=== PATIENT | male | born 2005 | race Caucasian/White ===

== ENCOUNTER 2024-09-08 21:36 | Emergency (ER) | payer OTHER, SELFPAY ==
--- NOTE | 2024-09-08 21:46 | PC.NURSE ---
patient did not want to stay once got into triage. asking when methadone would be ordered. this RN informed them that dose needs to be verified. patient and girlfriend asking if this RN would be ordering methadone and informed them a dr has to order dose. patient decided to leave and stated he will be going to [facility] for dosing.
--- OUTSIDE RECORDS SUMMARY | 2024-09-08 21:57 | XMS_ITS | Clinical Summary ---
Author Organization [facility] Address [address] [place], [place] [id number] Care Team Providers Care Cray Fishing Hand Name Role Phone Unavailable Primary Care Provider Unavailabl e Medications ondansetron (ZOFRAN-ODT) 4 MG disintegrating tablet 4 MG PO Q8H PRN nausea/v omiting 6 tablet 0 01/15/2019 Active ondansetron (ZOFRAN-ODT) 4 MG disintegrating tablet 4 MG PO Q8H 5 tablet 0 01/14/2019 Active Social History Tobacco Use Types Packs/Day Years Used Date Smoking Tobacco: Never Assessed Sex and Gender Information Value Date Recorded Sex Assigned at Not on file Legal Sex Male 10:58 PM EST Gender Identity Not on file Sexual Orientation Not on file Last Filed Vital Signs Vital Sign Reading Time Taken Comments Blood Pressure - - Pulse - - Temperature - - Respiratory Rate - - Oxygen Saturation - - Inhaled Oxygen Concentration - - Weight 88.7 kg (195 lb 8.8 oz) 01/15/2019 7:25 A M EDT Height 172.7 cm (5' 8 ) 01/15/2019 7:25 AM EDT Body Mass Index 29.73 01/15/2019 7:25 AM EDT Plan of Treatment Not on file
--- OUTSIDE RECORDS SUMMARY | 2024-09-08 21:57 | XMS_ITS | Clinical Summary ---
Author Organization [facility] Address [address] [place] [address] Phone Care Team Providers Care Waiter/Waitress Captain Name Role Phone Unavailable Primary Care Provider Unavailabl e Allergies No known active allergies Medications NIFEdipine XL 60 MG 24 hr tablet Take 60 mg by mouth every morning. 1 12/27/2019 Active NIFEdipine CC 90 MG 24 hr tablet Take 90 mg by mouth every evening. 1 12/27/2019 Active Sertraline HCl (ZOLOFT PO) Take by mouth. Active HYDROXYZINE HCL PO Take by mouth. Active Active Problems Problem Noted Date Diagnosed Date Prolonged Q-T interval on ECG 12/30/2020 Overview (12/30/2020): QTc 40 in the past per Hospital Admit Note 12/29/2020. Repeating EKG. COVID-19 virus infection 11/02/2020 Overview (11/02/2020): 05/06/2021 Essential hypertension 01/29/2020 Anxiety and depression 01/29/2020 Cannabis hyperemesis syndrom e concurrent with and due to cannabis abuse 01/27/2020 Overview (01/27/2020): 5 admissions for Above 4 at [facility] [place] 03/08/19, 11/09/19, 11/17/19, 12/18/19 [place] [facility] [place]19 Allergic rhinitis due to pollen 01/27/2020 Overview (01/27/2020): 11/05/17 Prick test + for Grass mix Resolved Problems Problem Noted Date Diagnosed Date Resolved Date Encounter for routine child health examination without abnormal findings 01/29/2020 Asthma 11/05/2017 01/29/2020 Overview (01/27/2020): spiromety normal infrequent Pro air use Immunizations Immunization Administration Dates Next Due DTaP 07/03/2007, 5,02/01/2004,01/31,2003,2003,2003 ,2003 H1N1 03/28/2009 HPV Vaccine 9 Valent 01/29/2020,10/25/2017 Hep A, ped/adol 01/29/2020,10/25/2017 Hep B 03/24/2004,2003,2003 Hep B, ped/adol 08/27/2008,2003,2003 HiB 06/23/2004, 4,02/01/2004,10/27,2003,2003,2003 IPV 08/27/2008, 4,2003,10/27,2003,2003 Influenza, injectable, quadr ivalent, preservative free 01/29/2020,02/09/2011,01/11/2010,03/28 MMR 09/03/2008,07/03/2007,06/23/2004 Meningococcal Conj (Menactra) MCV4P 01/29/2020,1 07/03/2014 Pneumococcal Conjugate 02/01/2004,2003, Pneumococcal, Unspecified 09/26/2004,,2003,08/24 Tdap 05/02/2015 Varicella 09/03/2008,07/03/2007,06/23/2004 Family History Medical History Relation Name Comments No Known Problems Father Zane No Known Problems Mother Dena Relation Name Status Comments Father Zane Alive Mother Dena Alive Social History Tobacco Use Types Packs/Day Years Used Date Smoking Tobacco: Never Assessed Hunger/Food Answer Date Recorded In the last 12 months, did y ou or your family ever eat less than you felt you should because there wasn't enough money for food? No 01/29/2020 Stable Housing Answer Date Recorded Are you worried that in the next 2 months you may not have stable housing? No 01/29/2020 Transportation Concerns Answer Date Rec orded In the last 12 months, have you or your family ever had to go without healthcare because you didn't have a way to get there? No 01/29/2020 Hazards in Home Answer Date Recorded Think about the place you li ve. Do you have problems with any of the following? Pests (mice or roaches), mold, no/not working smoke detectors, water leaks, no window guards. Yes 2019 Financing Utilities Answer Date Recorde d In the last 12 months, has t he electric, gas, oil, or water company threatened to shut off your services in your home? No 01/29/2020 Safety at Home Answer Date Recorded Are you or your family worried about feeling saf e in your home? No 01/29/2020 Outside Support Answer Date Recorded Do you feel that you need mo re support from other people or programs to help you care for yourself or your family? No 01/29/2020 Understanding Health Concerns Answer Da te Recorded Do you need help understandi ng your or your child's healthcare needs (diagnosis, medications, plan, etc.)? No 01/29/2020 Financing Health Concerns Answer Date R ecorded In the last 12 months, was t here a time when your child needed to see a doctor or get medications or supplies but could not because of cost? No 01/29/2020 Missing School or Work Answer Date Robin rded Did you or your child miss s chool or work because of a health problem that could have been avoided? Yes 01/29/2020 Sex and Gender Information Value Date Recorded Sex Assigned at Male 01/29/2020 9:27 AM EDT Legal Sex Male 6:28 PM EDT Gender Identity Male 01/29/2020 9:27 AM EDT Sexual Orientation Straight 01/29/2020 9: 27 AM EDT Last Filed Vital Signs Vital Sign Reading Time Taken Comments Blood Pressure 120/78 01/29/2020 8:47 AM EDT Pulse - - Temperature - - Respiratory Rate - - Oxygen Saturation - - Inhaled Oxygen Concentration - - Weight 79.8 kg (176 lb) 01/29/2020 8:47 AM EDT Height 168.9 cm (5' 6.5 ) 01/29/2020 8:47 AM EDT Body Mass Index 27.98 01/29/2020 8:47 AM EDT Plan of Treatment Health Maintenance Due Date Last Done Comments Men B Vaccine (1 of 2 - Standard) 2019 Influenza Vaccines (#1) 2023 03/14/20, 01/29/2020, 03/04/2015, Additional history exists COVID-19 Vaccine (1 - 2023-2 5 season) 2024 DTaP,Tdap,and Td Vaccines (8 - Td or Tdap) 05/02/2025 05/02/2015, 10/16/2013, 07/03/2007, Additional history exists HIB Vaccines Completed 06/23/2004, 01/12, 02/01/2004, Additional history exists Pneumococcal Vaccine Completed 09/26/2004, 02/01/2004, 02/01/2004, Additional history exists Hepatitis B Vaccines Completed 08/27/2008, 03/24/2004, 2003, Additional history exists IPV Vaccines Completed 08/27/2008, 03/13, 2003, Additional history exists MMR Vaccines Completed 09/03/2008, 06/14, 06/23/2004 Varicella Vaccines Completed 09/03/2008, 0 07/03/2007, 06/23/2004 HPV Vaccines Completed 01/29/2020, 06/2018, 10/25/2017 Hepatitis A Vaccines Completed 01/29/2020, 02/11/2019, 10/25/2017 Meningococcal Vaccine Completed 01/29/2020, 015 Insurance [facility] NON [facility] P[facility] MEDICAID [facility] [place] [place] Address: [address] [address] [place] [address]
== END 2024-09-08 21:57 | disposition left against medical advice (07) ==
PROVIDERS: Emergency Provider Emergency Medicine
DX: Z53.21 Procedure and treatment not carried out due to patient leaving prior to being seen by health care provider (principal)

== ENCOUNTER 2024-10-02 17:33 | Inpatient (IN) | payer OTHER, SELFPAY ==
[2024-10-02 17:34] VITALS: BP 146/99; PULSE 116; RESP 18; TEMP 36.6; BMI 28.9
--- NOTE | 2024-10-02 17:47 | ECG_ITS ---
Test Reason : SYNCOPE Blood Pressure : */* mmHG Vent. Rate : 64 BPM Atrial Rate : 64 BPM P-R Int : 142 ms QRS Dur : 94 ms QT Int : 556 ms P-R-T Axes : 64 28 20 degrees QTcB Int : 573 ms Normal sinus rhythm Right atrial enlargement ST & T wave abnormality, consider inferior ischemia ST & T wave abnormality, consider anterolateral ischemia Prolonged QT Abnormal ECG No previous ECGs available Referred By: Aidan Wallace Electronically Signed By: Yeison Gaytan
--- NOTE | 2024-10-02 17:47 | ED.GENADULT ---
HPI - General Adult General Chief complaint: General Medical Stated complaint: Vomiting Time Seen by Provider: 10/02/24 18:13 Source: patient Limitations: no limitations History of Present Illness ED Provider: Sissy Juan PA-C HPI narrative: 19-year-old male with a known cannabinoid induced hyperemesis, opiate use disorder on methadone, presents with nausea vomiting. Patient admits to using marijuana a week ago, he has had nausea vomiting since, he had a syncopal episode in the shower today. Denies recent cough or cold symptoms, fever, abdominal pain, diarrhea or sick contacts with similar symptoms. Related Data Home Medications ?Medication ?Instructions ?Recorded ?Confirmed methadone 10 mg/mL oral 110 mg PO DAILY 10/02/24 concentrate (Methadone Intensol) Allergies Allergy/AdvReac Type Severity Reaction Status Date / Time haloperidol [From Haldol] Allergy Unknown Verified 10/02/24 17:39 Review of Systems Review of Systems: Yes all other systems are reviewed and are negative Constitutional: Constitutional: Denies fatigue and Denies fever(s) Cardiovascular: Cardiovascular: Denies chest pain and Denies dyspnea Respiratory: Respiratory: Denies cough and Denies dyspnea Gastrointestinal: Gastrointestinal: Denies abdominal pain, Denies diarrhea, Reports nausea and Reports vomiting Endocrine: Endocrine: Denies fatigue PMFSH Past Medical History Attestation statement: The following information was validated with the patient. Medical History (Updated 10/02/24 @ 22:32 by Loree Mcgrath PA-C) Prolonged QT interval Opioid use disorder Cannabinoid hyperemesis syndrome Physical Exam ED Vital Signs: Vital Signs - 24 hr 10/02/24 20:12 Pulse Rate 72 Respiratory Rate 14 Blood Pressure 124/90 H Pulse Oximetry 97 Oxygen Delivery Method Room Air BMI result Body Mass Index 28.9 Const Other: Alert Orientation/consciousness: patient oriented x3 Eyes Other: pupils dilated Resp Effort & Inspection: normal respiratory effort Cardio Other: normal peripheral perfusion Skin Other: warm dry no rash Neuro General: patient oriented x3, gait normal, no focal motor deficits and CN's II-XI intact bilaterally Psych Other: cooperative Course Course Course Narrative: RME, this is a rapid medical exam performed by Ephraim Wallace please refer to primary provider for complete H&P- 19 year old male presents for evaluation of vomiting for the last week. He has a history of cannabis hyperemesis. Plan for labs, UA, and tox screen Medications Administered Discontinued Medications Generic Name Dose Route Start Last Admin Trade Name Wesley PRN Reason Stop Dose Admin Diazepam 5 mg 10/02/24 18:46 10/02/24 18:51 Diazepam 10 Mg/2 Ml Cartridge IVPUSH 10/02/24 18:47 5 mg STAT STA Administration Diphenhydramine HCl 50 mg 10/02/24 18:25 10/02/24 18:47 Diphenhydramine Hcl 50 Mg/Ml Vial IVPUSH 10/02/24 18:26 Not Given ONCE ONE Droperidol 1.25 mg 10/02/24 18:16 10/02/24 18:47 Droperidol 5 Mg/2 Ml Vial IVPUSH 10/02/24 18:17 Not Given ONCE ONE Sodium Chloride 1,000 mls @ 999 mls/hr 10/02/24 18:30 10/02/24 22:33 Ns IV 10/02/24 19:30 Infused .Q1H1M PRABHJOT Infusion Magnesium Sulfate 2 gm in 50 mls @ 25 mls/hr 10/02/24 18:40 10/02/24 22:33 Magnesium Sulfate/H2o IV 10/02/24 20:39 Infused ONCE ONE Infusion Potassium Chloride 10 meq in 100 mls @ 100 mls/hr 10/02/24 19:30 10/02/24 22:32 Potassium Chloride/H20 IV 10/02/24 23:29 100 mls/hr Q1H PRABHJOT Infusion Potassium Chloride 60 meq 10/02/24 19:30 10/02/24 19:36 Potassium Chloride Packet 20 Meq Packet PO 10/02/24 19:31 60 meq ONCE ONE Administration Potassium Chloride 40 meq 10/02/24 21:10 10/02/24 21:39 Potassium Chloride Er 20 Meq Tab.Er.Prt PO 10/02/24 21:11 40 meq ONCE ONE Administration Scopolamine 1.5 mg 10/02/24 20:09 10/02/24 20:32 Scopolamine 1.5 Mg Patch.Td.3 EAR-BEHIND 10/02/24 20:10 1.5 mg ONCE ONE Administration Medical Decision Making Medical Decision Making MDM Narrative: 19-year-old male with a known cannabinoid induced hyperemesis, opiate use disorder on methadone, presents with nausea vomiting. Patient admits to using marijuana a week ago, he has had nausea vomiting since, he had a syncopal episode in the shower today. Denies recent cough or cold symptoms, fever, abdominal pain, diarrhea or sick contacts with similar symptoms. problem: Marijuana abuse, opiate use disorder History: Per patient I have considered the following differential diagnoses: Cannabinoid induced hyperemesis, viral gastro, acute intra-abdominal pathology, electrolyte abnormality, dehydration, ACS Plan: EKG performed, the patient has ST segment depressions with T-wave inversions that are widespread, the patient states it has been brought to his attention in the past that his EKGs are concerning, we are obtaining records from [facility]. The patient has no complaint of chest pain, he has no risk factors for coronary artery disease, I will add on a troponin. His QT is also prolonged at 573, unclear if this is baseline or new, he is on methadone which could account for it. I was going to medicate with droperidol, that medication has been discontinued. We will be giving Valium and IV fluid. We will be checking a magnesium level and giving 2 gm of magnesium to be run over 20 minutes. He has no complaint of abdominal pain, with an unremarkable exam, he does not require imaging at this time. Likely not viral gastroenteritis given patient has no sick contacts with same symptoms, and he has known cannabinoid induced hyperemesis. Patient's potassium is critical at 2.0, we will be giving oral potassium and IV. In addition, the patient is metabolic alkalosis, bicarb is 46. The patient will require admission. I have independently reviewed the following tests: Labs: significant leukocytosis of 17.6, with left shift, not anemic, potassium critically low at 2.0, bicarb 46, magnesium elevated. EKG: Normal sinus rhythm, rate of 64, diffuse ST depressions and T-wave inversions anterolateral leads and inferiorly, QTC 573, no ectopy Lab Data 10/02/24 18:57 10/02/24 20:01 Labs: Lab Results 10/02/24 10/02/24 Range/Units 18:57 20:01 WBC 17.6 H (4.8-10.8) X10*3/uL RBC 5.67 (4.60-5.80) X10*6/uL Hgb 16.9 (14.0-18.0) g/dl Hct 46.7 (42.0-52.0) % MCV 82.4 (80.0-98.0) fL MCH 29.8 (27.0-33.0) pg MCHC 36.2 H (31.0-36.0) g/dl RDW 12.1 (11.0-16.0) % Plt Count 393 (160-400) X10*3/uL MPV 10.9 (9.4-12.4) fL Immature Gran % (Auto) 0.5 H (0.0-0.4) % Neut % (Auto) 75.3 H (45-73) % Lymph % (Auto) 15.9 L (20-40) % [place] % (Auto) 7.1 (2-11) % Eos % (Auto) 1.0 (0-4) % Baso % (Auto) 0.2 (0-2) % Lymph # (Auto) 2.8 (1.2-4.9) X10*3/uL [place] # (Auto) 1.3 H (0.1-1.2) X10*3/uL Eos # (Auto) 0.2 (0.0-0.4) X10*3/uL Baso # (Auto) 0.0 (0.0-0.2) X10*3/uL Abs Immat Gran (auto) 0.08 H (0.00-0.03) X10*3/uL Absolute Neuts (auto) 13.3 H (2.0-8.3) x10*3/uL Absolute Nucleated RBC 0.000 (0.0-0.012) X10*3/uL Nucleated RBC % (auto) 0.0 (0.0-0.2) /100WBC Sodium 133 L 135 (135-145) mmol/L Potassium 2.0 L* 2.3 L* (3.3-5.1) mmol/L Chloride 72 L 71 L (96-108) mmol/L Carbon Dioxide 46 H* 47 H* (22-29) mmol/L Anion Gap 17 19 (12-20) BUN 35 H 33 H (9-16) mg/dL Creatinine 1.17 1.22 (0.5-1.4) mg/dL Estim Creat Clear Calc 99.9 95.8 Estimated GFR > 60 > 60 Random Glucose 135 H 96 (60-115) mg/dL Calcium 9.5 9.6 (8.4-10.2) mg/dL Magnesium 4.3 H* 3.9 H* (1.6-2.6) mg/dL Total Bilirubin 0.9 (0.0-1.0) mg/dL AST 33 (5-37) U/L ALT 27 (0-40) U/L Alkaline Phosphatase 91 (39-117) U/L Troponin I High Sens 9.7 (<3.5-35.0) ng/L Total Protein 7.7 (6.5-8.0) g/dL Albumin 4.5 (3.5-5.0) g/dL Lipase 21 (8-78) U/L Ethyl Alcohol < 10 mg/dL Influenza Type A (PCR) NEGATIVE (Negative) Influenza Type B (PCR) NEGATIVE (Negative) RSV RNA Qual (PCR) NEGATIVE (Negative) SARS-CoV-2 RNA (RT-PCR) NEGATIVE (Negative) Discharge Plan Discharge Clinical Impression: Alkalosis, metabolic, Acute hypokalemia, Cannabinoid hyperemesis syndrome Patient Disposition: Left Against Medical Advice Discharge Date/Time: 10/02/24 23:02
[2024-10-02] MEDS: 0.9 % Sodium Chloride 1,000 ML 999 ML IV (18:38)
[2024-10-02] MEDS: Magnesium Sulfate/H2O 2 GM/50 ML PIGGYBACK IV (18:51)
[2024-10-02] MEDS: diazePAM 10 MG/2 ML CARTRIDGE 5 MG IVPUSH (18:51)
[2024-10-02 19:03] LABS: MANUAL DIFF FLAG NO
[2024-10-02 19:06] LABS: Basophils Percent Auto 0.2 % (0-2); Eosinophils Absolute Auto 0.2 X10*3/uL (0.0-0.4); Hematocrit 46.7 % (42.0-52.0); Hemoglobin 16.9 g/dl (14.0-18.0); Imm Gran Abs Auto 0.08 X10*3/uL (0.00-0.03); Imm Gran Pct Auto 0.5 % (0.0-0.4); Lymphocytes Absolute Auto 2.8 X10*3/uL (1.2-4.9); Lymphocytes Percent Auto 15.9 % (20-40); Mean Corpuscular HGB Conc 36.2 g/dl (31.0-36.0); Mean Corpuscular Hemoglobin 29.8 pg (27.0-33.0); Mean Corpuscular Volume 82.4 fL (80.0-98.0); Mean Platelet Volume 10.9 fL (9.4-12.4); Monocytes Absolute Auto 1.3 X10*3/uL (0.1-1.2); Monocytes Percent Auto 7.1 % (2-11); Neutrophils Absolute Auto 13.3 x10*3/uL (2.0-8.3); Neutrophils Percent Auto 75.3 % (45-73); Platelet Count 393 X10*3/uL (160-400); Red Blood Count 5.67 X10*6/uL (4.60-5.80); Red Cell Distribution Width 12.1 % (11.0-16.0); White Blood Count 17.6 X10*3/uL (4.8-10.8)
[2024-10-02 19:19] VITALS: BP 141/87; PULSE 85; RESP 16; O2SAT 99
[2024-10-02 19:31] LABS: Troponin-I High Sensitivity 9.7 ng/L (<3.5-35.0)
[2024-10-02 19:32] LABS: Magnesium 4.3 mg/dL (1.6-2.6)
[2024-10-02 19:33] LABS: Alanine Aminotransferase 27 U/L (0-40); Albumin Level 4.5 g/dL (3.5-5.0); Alkaline Phosphatase 91 U/L (39-117); Anion Gap 17 (12-20); Aspartate Amino Transferase 33 U/L (5-37); Bilirubin Total 0.9 mg/dL (0.0-1.0); Blood Urea Nitrogen 35 mg/dL (9-16); Calcium 9.5 mg/dL (8.4-10.2); Carbon Dioxide 46 mmol/L (22-29); Chloride 72 mmol/L (96-108); Creatinine Clr Calc Pharmacy 99.9; Estimated Glomerular Filt Rate > 60; Ethanol < 10 mg/dL; Glucose Random 135 mg/dL (60-115); Lipase 21 U/L (8-78); Sodium 133 mmol/L (135-145); Total Protein 7.7 g/dL (6.5-8.0)
[2024-10-02] MEDS: Potassium Chloride Packet 20 MEQ PACKET 60 MEQ PO (19:36)
[2024-10-02 19:42] LABS: Influenza A PCR NEGATIVE (Negative); Influenza B PCR NEGATIVE (Negative); Resp Syncy Virus RNA Qual PCR NEGATIVE (Negative); SARS COV2 PCR INHOUSE NEGATIVE (Negative)
[2024-10-02 20:12] VITALS: BP 124/90; PULSE 72; RESP 14; O2SAT 97
[2024-10-02] MEDS: Scopolamine 1.5 MG PATCH.TD.3 EAR-BEHIND (20:32)
[2024-10-02] MEDS: Potassium Chloride/H20 10 MEQ/100 ML PIGGYBACK 100 MEQ IV ×3 (20:32→22:25)
[2024-10-02 20:35] LABS: Anion Gap 19 (12-20); Blood Urea Nitrogen 33 mg/dL (9-16); Calcium 9.6 mg/dL (8.4-10.2); Carbon Dioxide 47 mmol/L (22-29); Chloride 71 mmol/L (96-108); Creatinine Clr Calc Pharmacy 95.8; Estimated Glomerular Filt Rate > 60; Glucose Random 96 mg/dL (60-115); Magnesium 3.9 mg/dL (1.6-2.6); Potassium 2.3 mmol/L (3.3-5.1); Sodium 135 mmol/L (135-145)
[2024-10-02] MEDS: Potassium Chloride ER 20 MEQ TAB.ER.PRT 40 MEQ PO (21:39)
--- NOTE | 2024-10-02 21:50 | PHA.MEDREC ---
Pharmacy Consult ? Medication Reconciliation Pharmacy has completed the medication reconciliation. Patient asked to leave AMA. Only listed methadone 110mg as a home med from [facility] in [place]
--- NOTE | 2024-10-02 22:26 | PC.NURSE ---
pt self removed tele monitor, he is requesting to leave AMA, dr [email or web address] notified via .
--- NOTE | 2024-10-02 22:27 | PM.IMHP ---
History of Present Illness Date of Service: 10/02/24 Attending physician on admission: Kev Kaye Chief Complaint: nausea, vomiting, syncopal episode Patient is a 19-year-old male with a past medical history significant for cannabinoid induced hyperemesis and opioid use disorder on methadone, who presented to the ED due to persistent nausea and vomiting for the past week after smoking marijuana. He denies any recent cough, URI symptoms, fever, abdominal pain, diarrhea, hematemesis or sick contacts. He also reports a syncopal episode but is unable to elaborate about this as he is very upset about admission and is threatening to leave AMA. Review of Systems Review of Systems: limited as pt does not respond to many questions because he is upset Constitutional: Constitutional: Denies fever(s) Eyes: Eyes: Denies change in vision ENT: Denies nasal congestion and Denies nasal discharge Cardiovascular: Cardiovascular: Denies chest pain and Denies dyspnea Respiratory: Respiratory: Denies cough, Denies dyspnea and Denies wheezing Gastrointestinal: Gastrointestinal: Denies coffee ground emesis, Reports nausea, Reports vomiting and Denies hematemesis Integumentary/Breasts: Skin/Breast: Denies rash Neurologic: Denies confusion Psychiatric: Psychiatric: Denies confusion Allergic/Immunologic: Allergic/Immunologic: Denies wheezing [facility] Medical History (Updated 10/02/24 @ 22:32 by Loree Mcgrath PA-C) Prolonged QT interval Opioid use disorder Cannabinoid hyperemesis syndrome Functional capacity: independent ambulation Social History Advance Directives: No Advance Directives Information Provided: No Meds Allergies Allergy/AdvReac Type Severity Reaction Status Date / Time haloperidol [From Haldol] Allergy Unknown Verified 10/02/24 17:39 Active Medications: Current Medications Potassium Chloride (Potassium Chloride/H20) 10 meq in 100 mls @ 100 mls/hr IV Q1H PRABHJOT Stop: 10/02/24 23:29 Last Admin: 10/02/24 22:25 Dose: 100 mls/hr Home Medications ?Medication ?Instructions ?Recorded ?Confirmed ?Last Taken ?Type methadone 10 mg/mL oral 110 mg PO DAILY 10/02/24 Unknown History concentrate (Methadone Intensol) Physical Exam Vital Signs and Narrative: Vital Signs: Last Vital Signs Temp 98 F 10/02/24 17:34 Pulse 72 10/02/24 20:12 Resp 14 10/02/24 20:12 BP 124/90 H 10/02/24 20:12 Pulse Ox 97 10/02/24 20:12 O2 Del Method Room Air 10/02/24 20:12 BMI result Body Mass Index 28.9 General: AOx3, no acute distress Resp: CTA bilaterally CVS: S1, S2, RRR GI: +BS, NT, no distention Skin: Warm, dry Neuro: Cranial nerves II-XII grossly intact bilaterally. Motor grossly intact bilaterally Extremities: No LE edema Psych: Upset, angry Const: General: No confusion Orientation/consciousness: No confusion Neuro: General: No confusion Results Labs 10/02/24 18:57 10/02/24 20:01 Labs: Laboratory Results - last 24 hr 10/02/24 10/02/24 18:57 20:01 MCV 82.4 MCH 29.8 MCHC 36.2 H RDW 12.1 Plt Count 393 MPV 10.9 Immature Gran % (Auto) 0.5 H Neut % (Auto) 75.3 H Lymph % (Auto) 15.9 L [place] % (Auto) 7.1 Eos % (Auto) 1.0 Baso % (Auto) 0.2 Lymph # (Auto) 2.8 [place] # (Auto) 1.3 H Eos # (Auto) 0.2 Baso # (Auto) 0.0 Abs Immat Gran (auto) 0.08 H Absolute Neuts (auto) 13.3 H Absolute Nucleated RBC 0.000 Nucleated RBC % (auto) 0.0 Anion Gap 17 19 Estim Creat Clear Calc 99.9 95.8 Estimated GFR > 60 > 60 Random Glucose 135 H 96 Calcium 9.5 9.6 Magnesium 4.3 H* 3.9 H* Total Bilirubin 0.9 AST 33 ALT 27 Alkaline Phosphatase 91 Total Protein 7.7 Albumin 4.5 Lipase 21 Ethyl Alcohol < 10 Influenza Type A (PCR) NEGATIVE Influenza Type B (PCR) NEGATIVE RSV RNA Qual (PCR) NEGATIVE SARS-CoV-2 RNA (RT-PCR) NEGATIVE Assessment and Plan (1) Cannabinoid hyperemesis syndrome: Status: Acute (2) Alkalosis, metabolic: Status: Acute (3) Acute hypokalemia: Status: Acute (4) Hypochloremic alkalosis: Status: Acute (5) Prolonged QT interval: Status: Acute Plan Patient is a 19-year-old male with a past medical history significant for cannabinoid induced hyperemesis and opioid use disorder on methadone, who presented to the ED due to persistent nausea and vomiting for the past week after smoking marijuana. Cannabinoid hyperemesis syndrome with hypokalemia, hypochloremia, and hypermagnesemia - patient with significant vomiting for the past week after marijuana use and history of cannabinoid hyperemesis syndrome - WBC 17.6, likely reactive - COVID/flu/RSV negative - EKG with prolonged QTC of 573 - labs with metabolic alkalosis, bicarb 47 - hypokalemic at 2.3, given 40 meq p.o. and 30 meq IV potassium - magnesium 3.9 - recheck BMP at 02:00 - scopolamine patch, droperidol and Benadryl as needed for nausea - monitor on tele - monitor BMP Prolonged QT - patient with history of prolonged QT, reviewed [facility] records, significantly elevated from baseline at 573 - patient is on methadone - repeat EKG after electrolyte repletion Opioid use disorder - patient is on methadone, we will need dose confirmed Full code VTE prophylaxis: Lovenox Patient with cannabinoid hyperemesis syndrome complicated by metabolic alkalosis, acute hypokalemia and prolonged QT, requiring admission for at least 2 midnight stay for electrolyte repletion and cardiac monitoring. Quality Stroke Does the patient have a stroke diagnosis?: No VTE Prior VTE?: Yes VTE Risk Level:: Medical - moderate - high VTE Device Contraindication: Treatment Not Indicated VTE Drug Contraindication: N/A - Med Ordered
--- NOTE | 2024-10-02 22:40 | P.DS_ITS ---
DS: Providers Provider Date of Service: 10/02/24 Date of admission: 10/02/24 21:10 Date of discharge: 10/02/24 Primary care physician: Rojas Physician DS: Diagnosis Discharge Diagnosis (1) Cannabinoid hyperemesis syndrome: Status: Acute (2) Alkalosis, metabolic: Status: Acute (3) Acute hypokalemia: Status: Acute (4) Hypochloremic alkalosis: Status: Acute (5) Prolonged QT interval: Status: Acute DS: Summary Hospital Course Hospital Course: admission H&P: Patient is a 19-year-old male with a past medical history significant for cannabinoid induced hyperemesis and opioid use disorder on methadone, who presented to the ED due to persistent nausea and vomiting for the past week after smoking marijuana. He denies any recent cough, URI symptoms, fever, abdominal pain, diarrhea, hematemesis or sick contacts. He also reports a syncopal episode but is unable to elaborate about this as he is very upset about admission and is threatening to leave AMA. Cannabinoid hyperemesis syndrome with hypokalemia, hypochloremia, and hypermagnesemia - patient with significant vomiting for the past week after marijuana use and history of cannabinoid hyperemesis syndrome - WBC 17.6, likely reactive - COVID/flu/RSV negative - EKG with prolonged QTC of 573 - labs with metabolic alkalosis, bicarb 47 - hypokalemic at 2.3, given 40 meq p.o. and 30 meq IV potassium - magnesium 3.9 - recheck BMP at 02:00 - scopolamine patch, droperidol and Benadryl as needed for nausea - monitor on tele - monitor BMP Prolonged QT - patient with history of prolonged QT, reviewed [facility] records, significantly elevated from baseline at 573 - patient is on methadone - repeat EKG after electrolyte repletion Opioid use disorder - patient is on methadone, we will need dose confirmed Pt left AMA shortly after being admitted. He received 40 mEq p.o. potassium as well as 30 mEq IV, 1 L IV fluids, Benadryl, droperidol and scopolamine patch for nausea. I discussed the risks of leaving AMA included cardiac event, which could be fatal. pt is aware of the risks and would still like to leave AMA. Status at Discharge Functional status at discharge: independent ambulation Overall status at discharge: patient is not back to baseline Time Attestation Total time managing care of this patient today: 30 mintues. Discharge Coordination Time (in mins): 30 mins Quality: Safe Use of Opioids Does Pt have an Active Cancer Diagnosis on the Problem List?: No Quality: Stroke Does the patient have a stroke diagnosis?: No Physical Exam Vital Signs: Vital Signs: Last Vital Signs Temp 98 F 10/02/24 17:34 Pulse 72 10/02/24 20:12 Resp 14 10/02/24 20:12 BP 124/90 H 10/02/24 20:12 Pulse Ox 97 10/02/24 20:12 O2 Del Method Room Air 10/02/24 20:12 BMI result Body Mass Index 28.9 General: AOx3, no acute distress Resp: CTA bilaterally CVS: S1, S2, RRR GI: +BS, NT, no distention Skin: Warm, dry Neuro: Cranial nerves II-XII grossly intact bilaterally. Motor grossly intact bilaterally Extremities: No LE edema Psych: Upset, angry DS: Data Data Completed and Pending Labs on day of discharge: Laboratory Results - last 24 hr 10/02/24 10/02/24 18:57 20:01 WBC 17.6 H RBC 5.67 Hgb 16.9 Hct 46.7 MCV 82.4 MCH 29.8 MCHC 36.2 H RDW 12.1 Plt Count 393 MPV 10.9 Immature Gran % (Auto) 0.5 H Neut % (Auto) 75.3 H Lymph % (Auto) 15.9 L [place] % (Auto) 7.1 Eos % (Auto) 1.0 Baso % (Auto) 0.2 Lymph # (Auto) 2.8 [place] # (Auto) 1.3 H Eos # (Auto) 0.2 Baso # (Auto) 0.0 Abs Immat Gran (auto) 0.08 H Absolute Neuts (auto) 13.3 H Absolute Nucleated RBC 0.000 Nucleated RBC % (auto) 0.0 Sodium 133 L 135 Potassium 2.0 L* 2.3 L* Chloride 72 L 71 L Carbon Dioxide 46 H* 47 H* Anion Gap 17 19 BUN 35 H 33 H Creatinine 1.17 1.22 Estim Creat Clear Calc 99.9 95.8 Estimated GFR > 60 > 60 Random Glucose 135 H 96 Calcium 9.5 9.6 Magnesium 4.3 H* 3.9 H* Total Bilirubin 0.9 AST 33 ALT 27 Alkaline Phosphatase 91 Troponin I High Sens 9.7 Total Protein 7.7 Albumin 4.5 Lipase 21 Ethyl Alcohol < 10 Influenza Type A (PCR) NEGATIVE Influenza Type B (PCR) NEGATIVE RSV RNA Qual (PCR) NEGATIVE SARS-CoV-2 RNA (RT-PCR) NEGATIVE Discharge Plan Discharge Patient Disposition: Left Against Medical Advice Discharge Diagnosis: Cannabis Hyperemesis syndrome Referrals: Physician,None [Primary Care Provider] - 1 Week Discharge Medications: No Action methadone [Methadone Intensol] 10 mg/mL Concentrate 110 mg PO DAILY Discharge Orders: Discharge Order (Routine); Ordered 10/02/24 Ordered By: Kev Kaye Diet: Advance to usual diet Activity on Discharge: As tolerated Print Language: Guamanian Care Plan Goals: Establish care with PCP Health Concerns: Cannabis use disorder Prolonged QTC Hypokalemia Plan of Treatment: Left AMA Assessment: As above Discharge Date/Time: 10/02/24 22:59
[2024-10-02 22:56] VITALS: BP 124/90; PULSE 81; RESP 20; O2SAT 97
== END 2024-10-02 22:59 | disposition left against medical advice (07) | DRG 249 ==
LOC: HO.ED 21:04 → HO.EDOVER 21:15
PROVIDERS: Physician Assistant; Physician Assistant Medical; Admitting Provider Student in an Organized Health Care Education/Training Program; Emergency Provider Emergency Medicine; Visit Provider Student in an Organized Health Care Education/Training Program
DX: R11.2 Nausea with vomiting, unspecified (principal); E87.3 Alkalosis; E83.41 Hypermagnesemia; E87.8 Other disorders of electrolyte and fluid balance, not elsewhere classified; F12.90 Cannabis use, unspecified, uncomplicated; F11.20 Opioid dependence, uncomplicated; E87.6 Hypokalemia; R94.31 Abnormal electrocardiogram [ECG] [EKG]; Z20.822 Contact with and (suspected) exposure to COVID-19
CPT/HCPCS: 0241U; 36415; 80048; 80053; 80307; 83690; 83735; 84484; 85025; 93005; 99222; 99284; J1200; J1790; J3360; J3475; J3480

== ENCOUNTER → 2024-10-02 17:47 | Outpatient (BNV) | payer OTHER, SELFPAY | PROVIDERS: Admitting Provider Student in an Organized Health Care Education/Training Program; Emergency Provider Emergency Medicine; Visit Provider Internal Medicine Cardiovascular Disease | DX: I51.7 Cardiomegaly (principal) | CPT/HCPCS: 93010 ==

== ENCOUNTER → 2024-10-02 21:10 | Outpatient (BNV) | payer OTHER, SELFPAY | PROVIDERS: Admitting Provider Student in an Organized Health Care Education/Training Program; Emergency Provider Emergency Medicine; Visit Provider Physician Assistant | DX: R11.2 Nausea with vomiting, unspecified (principal); F12.90 Cannabis use, unspecified, uncomplicated; E87.3 Alkalosis; E87.6 Hypokalemia; R94.31 Abnormal electrocardiogram [ECG] [EKG] | CPT/HCPCS: 99223; 99499 ==

== ENCOUNTER 2024-10-20 05:27 | Emergency (ER) | payer OTHER, SELFPAY ==
[2024-10-20] VITALS (9 sets, daily range): BP systolic 119–169; BP diastolic 68–93; PULSE 69–95; RESP 10–24; TEMP 36.6–37.1; O2SAT 97–98; BMI 25.1
--- OUTSIDE RECORDS SUMMARY | 2024-10-20 05:54 | XMS_ITS | Clinical Summary ---
Author Organization [facility] Address [address] [place] [address] Phone Care Team Providers Care Asphalt Spreader Name Role Phone Kim Sorto MD Primary Care Provid er Allergies No known active allergies Medications albuterol HFA (PROVENTIL HFA;VENTOLIN HFA) 108 (90 Base) MCG/ACT inhaler Inhale 2 puffs every 4 (four) hours as needed for wheezing or shortness of breath 1 Inhaler 11 9 Active capsaicin (ZOSTRIX) 0.025 % cream Apply topically every 4 (four) hours as needed (nausea) 60 g 9 Active Dextrose-Sodium Chloride (DEXTROSE 5 % AND SODIUM CHLORIDE 0.9 %) 5-0.9 % infusion Infuse 100 mL/hr into a venous catheter continuously 250 mL 9 Active diphenhydrAMINE (BENADRYL) 50 MG/ML injection Infuse 1 mL (50 mg total) into a venous catheter every 6 (six) hours as needed for sleep (nausea) 10 mL 9 Active famotidine (PEPCID) 20-0.9 MG/50ML-% IVPB Infuse 50 mL (20 mg total) into a venous catheter every 12 (twelve) hours 3000 mL 9 Active LORazepam (ATIVAN) 2 MG/ML injection Infuse 0.5 mL (1 mg total) into a venous catheter every 6 (six) hours as needed (nausea) 1 mL 9 Active nicotine (NICODERM CQ) 14 MG/24HR Place 1 patch on the skin daily 9 Active Active Problems Problem Noted Date Diagnosed Date Hematemesis with nausea 01/20/2019 Assessment & Plan (01/20/2019 12:52 AM EDT): See cannabis hyperemesis section. Hypertension 01/19/2019 Assessment & Plan (01/20/2019 12:50 AM EDT): Olayinka was noted to have hypertension on the evening of 01/19 to 157/111. His BP remained elevated 155-165/105-117. He has had mildly elevated BP throughout hospitalization, but not to this extent. Differential included nicotine withdrawal (as refused nicotine patch on multiple occassions), renal issue (though BUN/CR have remained reassuring), other substance withdrawal (utox on admission was negative, but question ETOH or other untested substance as possibility). Case reviewed with [facility] ICU team. [place] he may need more intensive monitoring for possible withdrawal issues as well as possible nephrology evaluation, neither of which is available for this age group at [facility]. Placement was found at [facility] and patient will be transferred there. Nicotine dependence, other tobacco product, with withdrawal 01/18/2019 Assessment & Plan (01/19/2019 10:31 PM EDT): Pt smokes at least two juuls per day, per mother and patient. This is, on average, the equivalent of 40 cigarettes per day. Patient is likely experiencing nicotine withdrawal, symptoms of which include: ?Sleep disturbances ?Irritability and anger ?Anxiety ?Dysphoria or depressed mood ?Restlessness (per [facility] Management of smoking cessation in adolescents) Course: Nicotine patch had been ordered, however patient declined application until 01/18. It was placed twice on 01/18 but patient did not like how patch felt on his skin so he removed. Patch placed again x2-3 times on 01/19, patient again removed. Patient had agreed to allow re-placement of patch on evening of 01/19. Dehydration in pediatric patient 01/17/2019 Assessment & Plan (01/19/2019 10:32 PM EDT): See cannabis hyperemeis Cannabis hyperemesis syndrom e concurrent with and due to cannabis abuse 01/16/2019 Assessment & Plan (01/20/2019 12:52 AM EDT): This is a 13 year old male who has used marijuana daily for about a year now and presented with 4 days of intractable vomiting. His compulsion to shower frequently as well as his history of heavy marijuana use are consistent with cannabis hyperemesis syndrome. The emesis probably became bilious after there was nothing else left in his stomach rather than due to an obstruction, and the blood tinged emesis is probably attributable to a small Hilaria-[place] tear or mild gastritis. He has upper abdominal tenderness which might be due to mesenteric adenitis or gastritis. Constipation is also a possible cause of the patient's vomiting and abdominal pain as the patient has not had a bowel movement in several days, but abdominal x-ray and abdomen/pelvis CT did not reveal a large stool burden and a surgical process was not identified. He remains afebrile making infectious etiology unlikely. On arrival to [facility], his chemistries were WNL. Urine toxicology screen was positive for THC but negative for other drugs of abuse. He was admitted for further IV fluid hydration and antiemetic therapy. The patient continued to have nausea and intermittent vomiting, which he feels is improved by taking hot showers and use of topical capsacin. The patient's laboratory data, imaging data, and clinical course still strongly suggest cannabis hyperemesis syndrome as the etiology of his symptoms. Assessment and Course by problem/system: Cannabis Hyperemesis: As noted above, the patient's presentation is most suggestive of cannabis hyperemesis syndrome particularly given ongoing symptoms relief with frequent hot showers. The patient and his mother were counseled that cessation of marijuana use is the most important thing in the treatment of this syndrome. Otherwise, care is supportive during acute episodes of hyperemesis and consists of IV fluid hydration and antiemetics. The patient continues to have nausea and intermittent vomiting. Zofran is rarely effective. He notes relief from intermittent ativan and benadryl. 01/17 1pm- Compazine, Ativan 2mg prn, Benadryl for sleep. After Ativan 2mg x1, Olayinka had no further emesis (last documented episode was 01/17 at noon) and he took one shower from 3pm until bedtime (reduced from q2h prior). 01/18 Overnight, Olayinka requested Benadryl and Melatonin for sleep, then had nausea at 0430 and received Compazine at that time. He expressed nausea again at 0630 and received Ativan 2mg. Upon awakening, he was initially alert and wanted to be discharged, but later became drowsy, appeared to be sleep walking and talking in his sleep. By 09, his mental status was back to baseline. 01/19: He continued with prn ativan and benadryl, which in concert with frequent hot showers gives him some symptomatic relief of his significant nausea. Plan: -continued supportive care as above with prn ativan and benadryl - avoid compazine and additional medications given that they have not been effective and may have contributed to his episode of altered sensorium on 01/18 - Referral to [facility] Adolescent Substance Abuse Program (phone: [phone]) upon discharge. Cardiovascular: Mild hypertension throughout hospitalization, felt to be due 130-140/90's nicotine withdrawal (patient initially refusing patch). Brief episodes delayed capillary refill concurrent with escalating BP. Had intermittently used nicotine patch on 01/18 and 01/19. BUN and CR on 01/19 morning normal. Unclear etiology. Discussed with [facility] recommended transfer to ICU level where nephrology available. Respiratory: Stable on RA throughout the admission without respiratory distress or hypoxia. Incidental note of expiratory wheezing was made at the time of admission in this patient with a past history of childhood asthma; see wheezing section for details. FEN/GI: Patient is at ongoing risk for dehydration due to poor PO intake associated with his illness. Electrolytes at the time of admission to [facility] were within normal limits. The patient received isotonic fluid boluses at [facility] prior to transfer to [facility], and he is received IV fluid hydration of D5 normal saline at 100 mL/h since admission. It is difficult to accurately monitor his I/O as he was frequently disconnected from IVF to shower. He was given a 1L bolus on the evening of 01/19. - Given ongoing poor po intake, he continues on MIVF at 100 cc/hr - given ongoing nausea/vomiting and no stool x1 week (though abdominal exam remains benign) a repeat KUB obtained 01/19, which showed a non-obstructive bowel gas pattern - continues with episodes of hematemisis, if nausea/vomiting persists or if abdominal exam changes, consider GI consult for further work up (though reassuringly CT abdomen and KUB have been unremarkable). He is currently on Famotidine, consider PPI. Infectious Disease: Patient remained afebrile throughout the admission. Normal appendix was visualized on CT scan at [facility]. Although gastroenteritis is a frequent cause of vomiting, there is no suggestion of an infectious etiology at this time. Neuro: On the morning of 01/18 there was concern that Olayinka was slurring his speech and stumbling. He had received Ativan and Compazine within 2 hours of each medication, as well as Melatonin overnight. However, with a change in his mental status and vomiting, head imaging is also indicated to rule out intracranial etiology for his symptoms. Subsequent neuro exams normal. - CT head normal 01/18/19 Psych: Patient and his mother note that Olayinka has a history of anxiety and he notes that he currently feels quite anxious. He had been on Buspar years ago, which he stopped due to symptoms of depression. -psychiatry consult 01/19 to discuss acute anxiety regimen and also evaluate need for maintenance therapy - patient evaluated by Carmen Pradhan, who recommended Lamictal (given history of anxiety and mood lability) as well as prn Vistaril - patient's mother not present during consult, and initiation of this therapy will be postponed pending further evaluation of his hypertension. Wheezing 01/16/2019 Assessment & Plan (01/19/2019 10:31 PM EDT): Patient had history of asthma as a young child. The patient has denied respiratory symptoms during this illness, but some end expiratory wheezes were audible on auscultation during the admission exam. Daily vaping/smoking could trigger hyperresponsiveness/wheezing. O2 sats and respiratory rate have remained WNL. Course: - Albuterol MDI ordered, prn wheezing however patient did not require. Social History Tobacco Use Types Packs/Day Years Used Date Smoking Tobacco: Never Assessed Sex and Gender Information Value Date Recorded Sex Assigned at Not on file Legal Sex Male 9:44 AM EDT Gender Identity Not on file Sexual Orientation Not on file Last Filed Vital Signs Vital Sign Reading Time Taken Comments Blood Pressure 139/89 01/20/2019 12:45 AM EDT Pulse 78 01/20/2019 12:45 AM EDT Temperature 37.2 ??C (98.9 ??F) 01/20/2019 12:45 AM E DT Respiratory Rate 18 01/20/2019 12:45 AM EDT Oxygen Saturation 100% 01/20/2019 12:45 AM EDT Inhaled Oxygen Concentration - - Weight 86.9 kg (191 lb 9.3 oz) 01/16/2019 6:51 P M EDT Height 169 cm (5' 6.54 ) 01/16/2019 6:51 PM EDT Body Mass Index 30.43 01/16/2019 6:51 PM EDT Plan of Treatment Health Maintenance Due Date Last Done Comments [facility] Topic HIV Screening 2003 [facility] T[facility] HPV Vaccines (1 - Male 3-dose series) 2018 [facility] Topic Meningococcal G roup B Conjugate Vaccine (1 of 2 - Standard) 2019 [facility] Topic Pedi Lipid Pane l age (17-21 years) 2020 [facility] Topic Tdap Vaccine (1 - Tdap) 2022 [facility] Topic Influenza (Flu) Seasonal (#1) 2025 [facility] Topic HIB Vaccines Aged Out No longer eligible based on patient's age to complete this [place] [address] [facility] PPO Advance Directives For more information, please contact: [phone] * Full Code (Latest Code Status on File) Date Activated Date Inactivated Comments 01/16/2019 7:37 PM 01/20/2019 5:42 AM Care Teams Asphalt Spreader Relationship Specialty Start Date End Date Kim Sorto MD [address] [place] [id number] PCP - General 11/08/16
--- NOTE | 2024-10-20 05:58 | ECG_ITS ---
Test Reason : QTC Blood Pressure : */* mmHG Vent. Rate : 61 BPM Atrial Rate : 61 BPM P-R Int : 134 ms QRS Dur : 84 ms QT Int : 416 ms P-R-T Axes : 66 47 22 degrees QTcB Int : 418 ms Normal sinus rhythm Normal ECG When compared with ECG of 02-Oct-2024 18:30, ST no longer depressed in Inferior leads Nonspecific T wave abnormality has replaced inverted T waves in Inferior leads T wave inversion no longer evident in Anterolateral leads QT has shortened Referred By: Desirae Salazar Electronically Signed By: DAIANA ESCALONA MD
[2024-10-20 06:01] LABS: MANUAL DIFF FLAG NO
[2024-10-20 06:15] LABS: Basophils Absolute Auto 0.1 X10*3/uL (0.0-0.2); Basophils Percent Auto 0.7 % (0-2); Eosinophils Absolute Auto 0.2 X10*3/uL (0.0-0.4); Eosinophils Percent Auto 2.6 % (0-4); Hematocrit 41.1 % (42.0-52.0); Hemoglobin 13.8 g/dl (14.0-18.0); Imm Gran Abs Auto 0.03 X10*3/uL (0.00-0.03); Imm Gran Pct Auto 0.3 % (0.0-0.4); Lymphocytes Absolute Auto 2.1 X10*3/uL (1.2-4.9); Lymphocytes Percent Auto 23.7 % (20-40); Mean Corpuscular HGB Conc 33.6 g/dl (31.0-36.0); Mean Corpuscular Hemoglobin 29.3 pg (27.0-33.0); Mean Corpuscular Volume 87.3 fL (80.0-98.0); Mean Platelet Volume 9.7 fL (9.4-12.4); Monocytes Absolute Auto 0.5 X10*3/uL (0.1-1.2); Monocytes Percent Auto 5.8 % (2-11); Neutrophils Percent Auto 66.9 % (45-73); Platelet Count 385 X10*3/uL (160-400); Red Blood Count 4.71 X10*6/uL (4.60-5.80); Red Cell Distribution Width 13.7 % (11.0-16.0)
[2024-10-20 06:18] LABS: Alanine Aminotransferase 14 U/L (0-40); Albumin Level 4.5 g/dL (3.5-5.0); Alkaline Phosphatase 85 U/L (39-117); Anion Gap 15 (12-20); Aspartate Amino Transferase 21 U/L (5-37); Bilirubin Total 0.5 mg/dL (0.0-1.0); Blood Urea Nitrogen 11 mg/dL (9-16); Calcium 9.9 mg/dL (8.4-10.2); Carbon Dioxide 23 mmol/L (22-29); Chloride 106 mmol/L (96-108); Estimated Glomerular Filt Rate > 60; Glucose Random 118 mg/dL (60-115); Lipase 13 U/L (8-78); Magnesium 1.7 mg/dL (1.6-2.6); Potassium 3.6 mmol/L (3.3-5.1); Sodium 140 mmol/L (135-145); Total Protein 7.3 g/dL (6.5-8.0)
--- NOTE | 2024-10-20 06:29 | ED.NAVMDI ---
HPI - Nausea/Vomiting/Diarrhea General Chief complaint: Nausea/Vomiting/Diarrhea Stated complaint: vomiting Time Seen by Provider: 10/20/24 06:18 Source: patient and old records reviewed Mode of arrival: ambulatory Limitations: no limitations History of Present Illness ED Provider: JENNIFER THAYER Narrative: 19 yo male with PMH of marijuana induced hyperemesis syndrome, opiate use disorder on methadone, prior admission in September 2024 for prolonged qtc, hypokalemia, metabolic alkalosis. He comes back today with c/o abdominal pain, n/v x 3 days. HE cannot keep anything down. He has not smoked in 1 week. No fevers. NO GIB symptoms reported. He sates this feels similar MD elicited complaint: nausea, vomiting and abdominal pain Onset (ago): day(s) (3) Description of vomiting: watery Associated nausea: Yes Associated abdominal pain: Yes Location of pain: diffuse Radiation: diffuse Pain consistency: constant Severity: severe Quality: aching Exacerbating factors: eating and movement Relieving factors: none Context: marijuana use Associated symptoms: loss of appetite, malaise and nausea/vomiting Related Data Home Medications ?Medication ?Instructions ?Recorded ?Confirmed methadone 10 mg/mL oral 110 mg PO DAILY 10/02/24 concentrate (Methadone Intensol) Previous Rx's ?Medication ?Instructions ?Recorded metoclopramide HCl 10 mg tablet 10 mg PO Q8H PRN nausea and 10/20/24 (Reglan) vomiting #20 tabs Allergies Allergy/AdvReac Type Severity Reaction Status Date / Time haloperidol [From Haldol] Allergy Unknown Verified 10/20/24 05:41 Review of Systems Review of Systems: Constitutional : No Weight loss, No Fever, No Chills ENT/Mouth : No sore throat, No Rhinorrhea Eyes: No Swelling, No Redness Cardiovascular : No Chest Pain, No SOB, NoEdema Respiratory : No Cough, No Sputum, No Wheezing Gastrointestinal : Positive Nausea, Positive Vomiting, no Diarrhea, positive abdominal Pain, No Hematochezia, No Melena Genitourinary : No Dysuria, No Urinary Frequency, No Hematuria, No Urgency Musculoskeletal : No joint pain, No Myalgias, No Joint Swelling Skin : No Skin Lesions, No rash Neuro : No Weakness, No Numbness, No Dizziness, No Headache All other systems reviewed and are negative. Gastrointestinal: Gastrointestinal: Reports nausea PMFSH Past Medical History Medical History (Updated 10/20/24 @ 06:46 by Desirae Salazar DO) Prolonged QT interval Opioid use disorder Cannabinoid hyperemesis syndrome Social History Social History Advance Directives: No Advance Directives Information Provided: No Physical Exam Vital Signs: Vital Signs: Last Vital Signs Temp 97.8 F 10/20/24 05:38 Pulse 93 10/20/24 05:38 Resp 20 10/20/24 05:38 BP 169/79 H 10/20/24 05:38 Pulse Ox 97 10/20/24 05:38 O2 Del Method Room Air 10/20/24 05:38 BMI result Body Mass Index 25.1 Appearance: Alert. Oriented X3. No acute distress. Eyes: Pupils equal, round and reactive to light. ENT: Pharynx normal. Neck: Normal inspection. Neck supple. CVS: Normal heart rate and rhythm. Pulses normal. Respiratory: No respiratory distress. Breath sounds normal. Abdomen: Soft and moderate ttp throughouts Skin: Skin warm and dry. Normal skin color. Normal skin turgor. Extremities: No lower extremity edema. No calf ttp Neuro: Oriented X 3. No motor deficit. No sensory deficit. CN2-12 intact Course Course Course Narrative: signed out to Dr. King pending improvement Medications Administered Discontinued Medications Generic Name Dose Route Start Last Admin Trade Name Freq PRN Reason Stop Dose Admin Diazepam 5 mg 10/20/24 06:17 10/20/24 06:29 Diazepam 10 Mg/2 Ml Cartridge IVPUSH 10/20/24 06:18 5 mg STAT STA Administration Droperidol 1.25 mg 10/20/24 06:17 10/20/24 06:29 Droperidol 5 Mg/2 Ml Vial IVPUSH 10/20/24 06:18 1.25 mg ONCE ONE Administration Medical Decision Making Medical Decision Making [facility] Narrative: 19 yo male with PMH of marijuana induced hyperemesis syndrome, opiate use disorder on methadone now here with diffuse abdominal pain n/v and feels the same. He will need basic labs, IVF, supportive medications and check qtc. He has diffuse pain it does not localize. Doubt appendicitis/renal colic/diverticulitis. Differential Diagnosis Differential Diagnoses: The differential diagnosis associated with the presentation includes dehydartion, abnormal labs, THC induced emesis Admission/Observation Consideration of admission/observation: Escalation of care including admission/observation considered Lab Data [facility] Lab Attestation statement: I reviewed the patient's lab results. his K, wbc count, thorne chemistries are markedly better compared to priors 10/20/24 05:56 10/20/24 05:56 Labs: Lab Results 10/20/24 Range/Units 05:56 WBC 9.0 (4.8-10.8) X10*3/uL RBC 4.71 (4.60-5.80) X10*6/uL Hgb 13.8 L (14.0-18.0) g/dl Hct 41.1 L (42.0-52.0) % MCV 87.3 (80.0-98.0) fL MCH 29.3 (27.0-33.0) pg MCHC 33.6 (31.0-36.0) g/dl RDW 13.7 (11.0-16.0) % Plt Count 385 (160-400) X10*3/uL MPV 9.7 (9.4-12.4) fL Immature Gran % (Auto) 0.3 (0.0-0.4) % Neut % (Auto) 66.9 (45-73) % Lymph % (Auto) 23.7 (20-40) % [place] % (Auto) 5.8 (2-11) % Eos % (Auto) 2.6 (0-4) % Baso % (Auto) 0.7 (0-2) % Lymph # (Auto) 2.1 (1.2-4.9) X10*3/uL [place] # (Auto) 0.5 (0.1-1.2) X10*3/uL Eos # (Auto) 0.2 (0.0-0.4) X10*3/uL Baso # (Auto) 0.1 (0.0-0.2) X10*3/uL Abs Immat Gran (auto) 0.03 (0.00-0.03) X10*3/uL Absolute Neuts (auto) 6.0 (2.0-8.3) x10*3/uL Absolute Nucleated RBC 0.000 (0.0-0.012) X10*3/uL Nucleated RBC % (auto) 0.0 (0.0-0.2) /100WBC Sodium 140 (135-145) mmol/L Potassium 3.6 D (3.3-5.1) mmol/L Chloride 106 D (96-108) mmol/L Carbon Dioxide 23 (22-29) mmol/L Anion Gap 15 (12-20) BUN 11 (9-16) mg/dL Creatinine 0.67 (0.5-1.4) mg/dL Estim Creat Clear Calc 163.0 Estimated GFR > 60 Random Glucose 118 H (60-115) mg/dL Calcium 9.9 (8.4-10.2) mg/dL Magnesium 1.7 (1.6-2.6) mg/dL Total Bilirubin 0.5 (0.0-1.0) mg/dL AST 21 (5-37) U/L ALT 14 (0-40) U/L Alkaline Phosphatase 85 (39-117) U/L Total Protein 7.3 (6.5-8.0) g/dL Albumin 4.5 (3.5-5.0) g/dL Lipase 13 (8-78) U/L Independent Interpretation I performed an independent interpretation of an: EKG Interpretation: Rate: 61 Rhythm: NSR [place]: normal Normal P waves. Normal EVON. Normal QRS complex. ST T wave : normal no YURIY qTC: 418 prior studies: no acute ischemia The study has been interpreted contemporaneously by me. . Independent Historian Clinical information obtained from an independent historian. History obtained from or confirmed by: Other External Record Review External record reviewed: Inpatient record Discharge Plan Discharge Clinical Impression: Cannabinoid hyperemesis syndrome Instructions: Acute Nausea and Vomiting (DC), Acute Abdominal Pain (ED), Cannabis Use Disorder (ED) Additional Instructions: labs reassuring rest and stay hydrated return for any worsening symptoms or concerns bland food and plenty of fluids for 48 hours Prescriptions: New metoclopramide HCl [Reglan] 10 mg tablet 10 mg PO Q8H PRN (Reason: nausea and vomiting) Qty: 20 0RF No Action methadone [Methadone Intensol] 10 mg/mL Concentrate 110 mg PO DAILY Print Language: [place]ican
--- NOTE | 2024-10-20 06:43 | PC.NURSE ---
attempted IV placement, pt did not tolerate well. asked for some time prior to retry
[2024-10-20] MEDS: droPERidol 5 MG/2 ML VIAL 1.25 MG IVPUSH (07:22)
[2024-10-20] MEDS: Lactated Ringers 1,000 ML 999 ML IV (07:22)
[2024-10-20] MEDS: diazePAM 10 MG/2 ML CARTRIDGE 5 MG IVPUSH (07:22)
--- NOTE | 2024-10-20 08:06 | PC.NURSE ---
19 M presents to ED with hyperemesis from chronic marijuana use. A+Ox4 and ambulatory, anxious. Pt c/o central abdominal pain along with n/v, no recent vomitting at this time. Denies CP or SOB. RR even and unlabored.
[2024-10-20] MEDS: Midazolam HCl 2 MG/2 ML VIAL IVPUSH ×2 (08:30→14:23)
[2024-10-20] MEDS: diphenhydrAMINE HCL 50 MG/ML VIAL IVPUSH ×2 (08:30→14:23)
[2024-10-20 08:34] LABS: Appearance Urine Clear; Color Urine Yellow; Glucose Urine UA Negative (Negative); Leukocyte Esterase Urine Negative (Negative); Nitrite Urine Negative (Negative); Specific Gravity - Urine 1.025 (1.005-1.025); Urine Blood Negative (Negative); Urine Ketones 15 mg/dL (Negative); Urine Protein Trace mg/dL (Neg-Trace)
--- NOTE | 2024-10-20 08:35 | PC.NURSE ---
Pt complained of EPS from previous medications administered. Pt was stating he felt anxious and was moving around a lot, tachycardic in 130s. Pt IV was flushed with normal saline and pt became relaxed and HR returned to 90s normal sinus. Pt medicated per JUL following flush as a precaution of potention EPS symptoms.
[2024-10-20 08:42] LABS: Bacteria Urine None Seen (None Seen); Hyaline Casts Urine 0-2 /LPF (0-2); RBC Urine 0-2 /HPF (0-2); Squamous Epithelial Cell Urine 0-2 /HPF (0-2); WBC Urine 0-5 /HPF (0-5)
[2024-10-20 08:43] LABS: Amphetamine Screen Urine Not Detected (Not Detect); Barbiturates, Urine Not Detected (Not Detect); Benzodiazepines Screen Urine Not Detected (Not Detect); Buprenorphine Scr Not Detected (Not Detect); Cannabinoid Screen Urine POSITIVE (Not Detect); Cocaine Screen Urine Not Detected (Not Detect); Fentanyl, urine POSITIVE (Not Detect); Methadone Screen, Urine Positive (Not Detect); Opiate Screen Urine Not Detected (Not Detect); Oxycodone Screen Urine Not Detected (Not Detect); Phencyclidine Screen Urine Not Detected (Not Detect)
[2024-10-20] MEDS: Lactated Ringers 1,000 ML 125 ML IVCONT (11:01)
--- NOTE | 2024-10-20 11:33 | PC.NURSE ---
pt's [facility] dose [facility] [place], pt takes 110mg and last dosed at the clinic was 10/19/24 at 1505
--- NOTE | 2024-10-20 11:49 | HE.PHANOTE ---
METHADONE Pt last received 110mg on 10/19/24 @ 1505 from [facility] ([phone]) per WALDO Rush.
[2024-10-20] MEDS: HYDROmorphone HCl 1 MG/ML SYRINGE IVPUSH (11:56)
--- NOTE | 2024-10-20 13:44 | PC.NURSE ---
pt reports that he is still not ready to take the methadon at this time feels like he will vomit it right back, even do the pt requested it around 1330, will attempt again at 1400, pt given water to po trial
[2024-10-20] MEDS: Metoclopramide HCl 10 MG/2 ML VIAL IVPUSH (14:23)
[2024-10-20] MEDS: methADONE HCl 20 MG/2 ML ORAL.CONC 110 MG PO (15:18)
--- NOTE | 2024-10-20 15:30 | PHA.MEDREC ---
Addendum entered by Silvano Velazco [facility] 10/20/24 15:32: Med rec reviewed Original Note: Pharmacy Consult ? Medication Reconciliation Pharmacy has reviewed the medication reconciliation done by nursing.
--- NOTE | 2024-10-20 15:50 | PC.NURSE ---
not sure what triggered this pt behavior outburst, but a lot of yelling occurred in his room between the pt and his girlfriend, pt extremely agitated and threatening and wants to leave, unable to be redirected, at bedside, iv removed and pt left prior to getting his dc paperwork
== END 2024-10-20 16:00 | disposition home or self-care (01) ==
LOC: HO.ED 15:09 → HO.EDOVER 15:33
PROVIDERS: Emergency Medicine; Emergency Provider Emergency Medicine Emergency Medical Services; PCP Nurse Practitioner Pediatrics
DX: R11.2 Nausea with vomiting, unspecified (principal); F12.19 Cannabis abuse with unspecified cannabis-induced disorder; F11.90 Opioid use, unspecified, uncomplicated; R10.2 Pelvic and perineal pain; Z51.81 Encounter for therapeutic drug level monitoring; Z79.899 Other long term (current) drug therapy; Z71.51 Drug abuse counseling and surveillance of drug abuser
CPT/HCPCS: 36415; 80053; 80307; 81001; 83690; 83735; 85025; 93005; 96361; 96374; 96375; 96376; 99285; J1171; J1200; J1790; J2250; J2765; J3360; J7120

== ENCOUNTER → 2024-10-20 05:58 | Outpatient (BNV) | payer OTHER, SELFPAY | PROVIDERS: Emergency Provider Emergency Medicine Emergency Medical Services; PCP Nurse Practitioner Pediatrics; Visit Provider Internal Medicine Cardiovascular Disease | DX: Z13.6 Encounter for screening for cardiovascular disorders (principal) | CPT/HCPCS: 93010 ==

== ENCOUNTER 2024-11-11 06:44 | Emergency (ER) | payer OTHER, SELFPAY ==
[2024-11-11 06:51] VITALS: BP 133/94; PULSE 80; O2SAT 98
[2024-11-11 06:52] VITALS: BP 133/87; PULSE 77; RESP 18; TEMP 37; O2SAT 97; BMI 24.4
--- NOTE | 2024-11-11 07:04 | PC.NURSE ---
Pt drinking Gatorade repeatedly after being educated on remaining NPO until being seen by MD and treated for his N/V; pt refused to comply and is currently loudly vomiting Gatorade into an emesis bag; aware
--- OUTSIDE RECORDS SUMMARY | 2024-11-11 07:30 | XMS_ITS | Clinical Summary ---
Author Organization [facility] Address [address] [place] [address] Care Team Providers Care Hog Sticker Name Role Phone Kim Luis MD Primary Care Provider Allergies No known active allergies Encounters Date Type Department Care Team Description 10/03/2024 12:54 AM EDT - 10/03/2024 5:09 AM EDT Emergency [facility] Emergency [address] [place] [address] Discharge Disposition: ED Dismiss - Never Arrived from Last 3 Months Social History Tobacco Use Types Packs/Day Years Used Date Smoking Tobacco: Never Assessed Sex and Gender Information Value Date Recorded Sex Assigned at Not on file Legal Sex Male 10:34 AM EDT Gender Identity Not on file Sexual Orientation Not on file Last Filed Vital Signs Vital Sign Reading Time Taken Comments Blood Pressure 128/81 10/03/2024 1:00 AM EDT Pulse 90 10/03/2024 1:00 AM EDT Temperature 36.8 C (98.2 F) 10/03/2024 1:00 AM EDT Respiratory Rate 16 10/03/2024 1:00 AM EDT Oxygen Saturation 98% 10/03/2024 1:00 AM EDT Inhaled Oxygen Concentration - - Weight 65.8 kg (145 lb) 10/03/2024 1:00 AM EDT Height 167.6 cm (5' 6 ) 10/03/2024 1:00 AM EDT Body Mass Index 23.4 10/03/2024 1:00 AM EDT Plan of Treatment Upcoming Encounters Date Type Department Care Team (Late st Contact Info) Description 12/15/2024 3:30 PM EDT Office Visit [facility] [address] [place] [id number] Kim Luis MD [address] [place] [id number] Health Maintenance Due Date Last Done Comments Meningococcal B Vaccine (1 of 2 - Standard) 2019 Hepatitis A Vaccines (1 of 2 - Risk 2-dose series) 2022 Hepatitis B Vaccines (1 of 3 - 19+ 3-dose series) 2022 Pneumococcal Vaccine: Pediatrics (0 to 5 Years) and At-Risk Patients (6 to 64 Years) (1 of 2 - PCV) 2022 COVID-19 Vaccine ( season) 2024 Annual Well Child Visit (3-21 years old) 03/08/2024 Cholesterol Screening (Lipid Panel) 03/08/2024 Depression Screening 03/08/2024 HIV Screening 03/08/2024 Hepatitis C Screening 03/08/2024 Social Influencers of Health Screening 03/08/2024 Influenza Vaccine (Season Ended) 2025 03/14/2021, 01/29/2020, 03/04/2015, Additional history exists DTaP,Tdap,and Td Vaccines (3 - Td or Tdap) 05/02/2025 05/02/2015, 10/16/2013 MMR Vaccines Completed 09/03/2008, 07/03/2007 Varicella Vaccines Completed 09/03/2008, 07/03/2007 HPV Vaccines Completed 01/29/2020, 06/2018, 10/23/2017 Meningococcal ACWY Vaccine Completed 01/29/2020, HIB Vaccines Aged Out No longer eligi ble based on patient's age to complete this topic IPV Vaccines Aged Out No longer eligi ble based on patient's age to complete this topic RSV Immunization Patients Under 20 months Aged Out No longer eligible based on patient's age to complete this topic Procedures Procedure Name Priority Date/Time Associated Diagnosis Comments MANUAL DIFFERENTIAL - SYSMEX WAM STAT 10/03/2024 1:12 AM EDT MAGNESIUM Add-On 10/03/2024 1:12 AM EDT CBC WITH AUTO DIFFERENTIAL STAT 10/03/2024 1:12 AM EDT ETHANOL STAT 10/03/2024 1:12 AM EDT BASIC METABOLIC PANEL STAT 10/03/2024 1:12 AM EDT CBC AND DIFFERENTIAL STAT 10/03/2024 1:12 AM EDT from Last 3 Months Results * (ABNORMAL) Manual differential (10/03/2024 1:12 AM EDT) Pathologist [facility] Neutrophils % 72.0 % LAB HEMETOLOGY METHOD 10/03/2024 2:24 AM EDT [facility] Lymphocytes % 17.0 % LAB HEMETOLOGY METHOD 10/03/2024 2:24 AM [facility] Reactive Lymphocyte 5.00 % LAB HEMETOLOGY METHOD 10/03/2024 2:24 AM [facility] Monocytes % 3.0 % LAB HEMETOLOGY METHOD 10/03/2024 2:24 AM [facility] Eosinophils % 3.0 % LAB HEMETOLOGY METHOD 10/03/2024 2:24 AM [facility] Basophils % 0.0 % LAB HEMETOLOGY METHOD 10/03/2024 2:24 AM [facility] Neutrophils Absolute Manual 14.11(H) 1.50 - 7.00 K/mcL LAB HEMETOLOGY METHOD 10/03/2024 2:24 AM [facility] Lymphocytes Absolute 3.33 1.00 - 5.00 K/mcL LAB HEMETOLOGY METHOD 10/03/2024 2:24 AM [facility] Reactive Lymph Abs Manual 0.98(H) 0.00 - 0.00 lym LAB HEMETOLOGY METHOD 10/03/2024 2:24 AM [facility] Monocytes Absolute Manual 0.59 0.20 - 1.00 K/mcL LAB HEMETOLOGY METHOD 10/03/2024 2:24 AM EDT [facility] Eosinophils Absolute Manual 0.59(H) 0.00 - 0.50 K/[facility] LAB HEMETOLOGY METHOD 10/03/2024 2:24 AM EDT [facility] Basophils Absolute Manual 0.00 0.00 - 0.20 K/[facility] LAB HEMETOLOGY METHOD 10/03/2024 2:24 AM EDT [facility] Rbc Morphology Consistent with indices Consistent with indices, Normal for LAB HEMETOLOGY METHOD 10/03/2024 2:24 AM EDT [facility] Platelet Morphology - WAM Normal Normal [facility] 10/03/2024 2:24 AM EDT [facility] Blood Venous blood specimen / Unknown Venipuncture / Unknown 10/03/2024 1:12 AM EDT 10/03/2024 1:49 AM EDT us Avis Elizabeth MD LAB BLOOD ORDERABLES Fin al Result [facility] [address] [place] [address], * (ABNORMAL) CBC auto differential (10/03/2024 1:12 AM EDT) WBC 19.6(H) 4.8 - 10.8 K/mcL LAB HEMETOLOGY METHOD 10/03/2024 2:24 AM EDT [facility] RBC 5.80(H) 4.50 - 5.50 M/mcL LAB HEMETOLOGY METHOD 10/03/2024 2:24 AM EDT [facility] Hemoglobin 16.9 13.5 - 17.5 g/dL LAB HEMETOLOGY METHOD 10/03/2024 2:24 AM EDT [facility] Hematocrit 49.5 42.0 - 54.0 % LAB HEMETOLOGY METHOD 10/03/2024 2:24 AM EDT [facility] MCV 85.9 79.0 - 98.0 FL LAB HEMETOLOGY METHOD 10/03/2024 2:24 AM EDT [facility] MCH 29.3 27.0 - 32.0 pcg LAB HEMETOLOGY METHOD 10/03/2024 2:24 AM EDT [facility] MCHC 34.1 32.0 - 37.0 g/dL LAB HEMETOLOGY METHOD 10/03/2024 2:24 AM EDT [facility] RDW 12.1 11.0 - 15.0 % LAB HEMETOLOGY METHOD 10/03/2024 2:24 AM [facility] Platelets 431(H) 130 - 400 K/mcL LAB HEMETOLOGY METHOD 10/03/2024 2:24 AM EDT [facility] MPV 11.1(H) 7.0 - 11.0 FL LAB HEMETOLOGY METHOD 10/03/2024 2:24 AM EDT [facility] NRBC 0.0 <1.0 % LAB HEMETOLOGY METHOD 10/03/2024 2:24 AM EDT [facility] NRBC Absolute 0.00 <0.10 K/mcL LAB HEMETOLOGY METHOD 10/03/2024 2:24 AM T [facility] Blood Venous blood specimen / Unknown Venipuncture / Unknown 10/03/2024 1:12 AM EDT 10/03/2024 1:49 AM EDT us Avis Elizabeth MD LAB BLOOD ORDERABLES Fin al Result [facility] [address] [place] [address], * (ABNORMAL) Magnesium (10/03/2024 1:12 AM EDT) Magnesium 3.0(H) 1.9 - 2.6 mg/dL LAB CHEMISTRY METHOD 10/03/2024 2:56 AM EDT [facility] Blood Venous blood specimen / Unknown Venipuncture / Unknown 10/03/2024 1:12 AM EDT 10/03/2024 1:49 AM EDT Avis Elizabeth MD LAB BLOOD ORDERABLES Fin al Result Performing Organization Address [facility]/ZIP Co de Phone Number [facility] [address] [place] [address], [place] [phone] * Ethanol (10/03/2024 1:12 AM EDT) Ethanol Level <3 0 - 10 mg/dL LAB CHEMISTRY METHOD 10/03/2024 2:10 AM EDT [facility] Blood Venous blood specimen / Unknown Venipuncture / Unknown 10/03/2024 1:12 AM EDT 10/03/2024 1:49 AM EDT Avis Elizabeth MD LAB BLOOD ORDERABLES Fin al Result Performing Organization Address [facility]/ZIP Co de Phone Number [facility] [address] [place] [address], [place] [phone] * (ABNORMAL) Basic metabolic panel (10/03/2024 1:12 AM EDT) Sodium 128(L) 133 - 145 mmol/L LAB CHEMISTRY METHOD 10/03/2024 2:30 AM EDT [facility] Potassium 2.7(LL) 3.5 - 5.5 mmol/L LAB CHEMISTRY METHOD 10/03/2024 2:30 AM EDT [facility] Chloride 75(L) 96 - 110 mmol/L LAB CHEMISTRY METHOD 10/03/2024 2:30 AM EDT [facility] CO2 44(HH) 21 - 32 mmol/L LAB CHEMISTRY METHOD 10/03/2024 2:30 AM EDT [facility] Anion Gap 9 3 - 11 LAB CHEMISTRY METHOD 10/03/2024 2:30 AM T [facility] Glucose 91 70 - 100 mg/dL LAB CHEMISTRY METHOD 10/03/2024 2:30 AM T [facility] BUN 28(H) 5 - 25 mg/dL LAB CHEMISTRY METHOD 10/03/2024 2:30 AM EDT [facility] Creatinine 1.29 0.70 - 1.30 mg/dL LAB CHEMISTRY METHOD 10/03/2024 2:30 AM EDT [facility] eGFR 81 >=60 mL/min/1. 73m2 LAB CHEMISTRY METHOD 10/03/2024 2:30 AM EDT [facility] Comment:Calculation based on the Chronic Kidney Disease Epidemiology Collaboration (CKD-EPI) equation refit without adjustment for race. BUN/Creatinine Ratio 21.7 LAB CHEMISTRY METHOD 10/03/2024 2:30 AM T [facility] Calcium 9.8 8.5 - 10.5 mg/dL LAB CHEMISTRY METHOD 10/03/2024 2:30 AM T [facility] Blood Venous blood specimen / Unknown Venipuncture / Unknown 10/03/2024 1:12 AM EDT 10/03/2024 1:49 AM EDT us Avis Elizabeth MD LAB BLOOD ORDERABLES Fin al Result [facility] [address] [place] [address], from Last 3 Months Insurance [address] [place] [id number] [employer] Care Teams Hog Sticker Relationship Specialty Start Date End Date Kim Luis MD [address] [place] [address] PCP - General Internal Medicine 07/21/24
--- OUTSIDE RECORDS SUMMARY | 2024-11-11 07:30 | XMS_ITS | Patient Health Record ---
Author Organization [facility] Address [address], [place] [id number] Care Team Providers Care Cab Station Attendant Name Role Phone Robert Rosario Primary Care Provider Kaylynn Best Unavailable [phone] Mail, Pick-up Unavailable Unavailable Reason For Referral No Information Plan Of Treatment No Information Insurance Providers Payer Name Payer Address Payer Phone Subscriber Number Group Number Insured Name Patient Relationship to Insured Coverage Start Date Coverage End Date [place] Standard [address] [place] [address] [id number] Olayinka Quinones Self - patient is the insured 2 2
--- OUTSIDE RECORDS SUMMARY | 2024-11-11 07:30 | XMS_ITS | Clinical Summary ---
Author Organization [facility] Address [address] [place] [address] Phone Care Team Providers Care Mechanism Assembler Name Role Phone Kim Sorto MD Primary [...] untested substance as possibility). Case reviewed with [facility] ICU team. [place] he may need more intensive monitoring for possible withdrawal issues as well as possible nephrology evaluation, neither of which is available for this age group at [facility]. Placement was found at [facility] and patient will be transferred there. [...] making infectious etiology unlikely. On arrival to [facility], his chemistries were WNL. Urine toxicology screen [...] altered sensorium on 01/18 - Referral to [facility] Adolescent Substance Abuse Program (phone: [phone]) upon discharge. Cardiovascular: Mild hypertension throughout hospitalization, felt to be due 130-140/90's nicotine withdrawal (patient initially refusing patch). Brief episodes delayed capillary refill concurrent with escalating BP. Had intermittently used nicotine patch on 01/18 and 01/19. BUN and CR on 01/19 morning normal. Unclear etiology. Discussed with [facility] recommended transfer to ICU level where [...] Electrolytes at the time of admission to [facility] were within normal limits. The patient received isotonic fluid boluses at [facility] prior to transfer to [facility], and he is received IV fluid hydration [...] appendix was visualized on CT scan at [facility]. Although gastroenteritis is a frequent cause of [...] 78 01/20/2019 12:45 AM EDT Temperature 37.2 C (98.9 F) 01/20/2019 12:45 AM EDT Respiratory Rate 18 01/20/2019 12:45 AM EDT Oxygen Saturation 100% 01/20/2019 12:45 AM EDT Inhaled Oxygen Concentration - - Weight 86.9 kg (191 lb 9.3 oz) 01/16/2019 6:51 P M EDT Height 169 cm (5' 6.54 ) 01/16/2019 6:51 PM EDT Body Mass Index 30.43 01/16/2019 6:51 PM EDT Plan of Treatment Health Maintenance Due Date Last Done Comments [facility] Topic HIV Screening 2003 [facility] Topic HPV Vaccines (1 - Male 3-dose series) 2018 [facility] Topic Meningococcal G roup B Conjugate Vaccine (1 of 2 - Standard) 2019 [facility] Topic Pedi Lipid Pane l age (17-21 years) 2020 [facility] Topic Tdap Vaccine (1 - Tdap) 2022 [facility] Topic Influenza (Flu) Seasonal (#1) 2025 [facility] Topic Shingrix (1 of 2) 2053 [facility] Topic HIB Vaccines Aged Out No longer eligible based on patient's age to complete this topic Insurance [facility] PPO Advance Directives For more information, please contact: [phone] * Full Code (Latest Code Status on File) Date Activated Date Inactivated Comments 01/16/2019 7:37 PM 01/20/2019 5:42 AM Care Teams Mechanism Assembler Relationship Specialty Start Date End Date Kim Sorto MD [address] [place] [id number] PCP - General 11/08/16
--- OUTSIDE RECORDS SUMMARY | 2024-11-11 07:31 | XMS_ITS | Clinical Summary ---
Author Organization [facility] Address [address] [place] [address] Phone Care Team Providers Care Dross Skimmer Name Role Phone Unavailable Primary Care Provider [...] (01/27/2020): 5 admissions for Above 4 at [facility] [place] 03/08/19, 11/09/19, 11/17/19, 12/18/[place] [facility] [place] Allergic rhinitis due to pollen 01/27/2020 [...] Completed 01/29/2020, 015 Insurance [employer] [facility] MEDICAID [facility] Address: [address] [address] [place] [address]
--- OUTSIDE RECORDS SUMMARY | 2024-11-11 07:31 | XMS_ITS | Clinical Summary ---
Author Organization [facility] Address [address] [place], [place] [id number] Care Team Providers Care Community Development Coordinator Name Role Phone Unavailable Primary Care Provider [...]
--- NOTE | 2024-11-11 07:44 | ED_ITS ---
HPI - Nausea/Vomiting/Diarrhea General Chief complaint: Nausea/Vomiting/Diarrhea Stated complaint: VOMITTING FOR 3DAYS Time Seen by Provider: 11/11/24 06:55 History of Present Illness HPI Narrative: Patient is a 19-year-old male with a history of polysubstance abuse. History of marijuana use. History of nausea vomiting after marijuana use. Previous history of narcotic abuse. Currently on methadone. Patient missed his methadone for 2 days. Came in because he feels weak achy nauseous vomiting. Related Data Home Medications ?Medication ?Instructions ?Recorded ?Confirmed methadone 10 mg/mL oral 120 mg PO DAILY 10/02/2407/07 concentrate (Methadone Intensol) Previous Rx's ?Medication ?Instructions ?Recorded metoclopramide HCl 10 mg tablet 10 mg PO Q8H PRN nause a and 10/20/24 (Reglan) vomiting #20 tabs Allergies Allergy/AdvReac Type Severity Reaction Status Date / Time haloperidol (From Haldol) Allergy Unknown Verified 11/11/24 06:54 droperidol AdvReac Muscle Verified 11/11/24 08:44 cramps Review of Systems 2 Review of Systems: Positive nausea vomiting Yes all other systems are reviewed and are negative PMFSH Past Medical History Attestation statement: The following information was validated with the patient. Medical History Prolonged QT interval Opioid use disorder Cannabinoid hyperemesis syndrome Social History Social History Unable to assess alcohol history related to: Unknown Alcohol intake: unknown Smoked in Last 30 Days: Yes Use of substances other than those prescribed or required for medical reasons: Yes Substance Use Type: Marijuana and Opiates Substance Use Frequency: Chronic Longstanding Last Used Substance: Unknown Advance Directives: No Advance Directives Information Provided: Yes Do you have a plan to hurt others: No Plan Physical Exam 2 Vital Signs: Vital Signs: Last Vital Signs Temp 98.2 F 11/11/24 09:26 Pulse 90 11/11/24 09:26 Resp 16 11/11/24 09:26 BP 131/83 11/11/24 09:26 Pulse Ox 97 11/11/24 09:26 O2 Del Method Room Air 11/11/24 09:26 BMI result Body Mass Index 24.4 Appearance: Alert. Oriented X3. No acute distress. Eyes: Pupils equal, round and reactive to light. ENT: Pharynx normal. Neck: Normal inspection. Neck supple. No lymph nodes noted. No crepitus CVS: Normal heart rate and rhythm. Pulses normal. Normal S1 and S2 Respiratory: No respiratory distress. Breath sounds normal. No Wheezing. No rales Abdomen: Soft and nontender. No rigidity. No distention. good BS x4 Skin: Skin warm and dry. Normal skin color. Normal skin turgor. Extremities: No lower extremity edema. Neurovascular intact to all extremities. No Lacerations. No Rash Neuro: Oriented X 3. No motor deficit. No sensory deficit. Moving all extermities. No slurred speech Medications Administered Discontinued Medications Generic Name Dose Route Start Last Admin Trade Name Freq PRN Reason Stop Dose Admin Diphenhydramine HCl 50 mg 11/11/24 08:27 11/11/24 08:38 Diphenhydramine Hcl 50 Mg/Ml Vial IVPUSH 11/11/24 08:28 50 mg ONCE ONE Administration Droperidol 0.625 mg 11/11/24 07:43 11/11/24 07:55 Droperidol 5 Mg/2 Ml Vial IVPUSH 11/11/24 07:44 0.625 mg ONCE ONE Administration Sodium Chloride 1,000 mls @ 999 mls/hr 11/11/24 07:45 11/11/24 10:04 Ns IV 11/11/24 08:45 Infused .Q1H1M PRABHJOT Infusion Sodium Chloride 1,000 mls @ 999 mls/hr 11/11/24 07:45 11/11/24 10:04 Ns IV 11/11/24 08:45 Infused .Q1H1M PRABHJOT Infusion Methadone HCl 120 mg 11/11/24 08:34 11/11/24 09:22 Methadone Hcl 20 Mg/2 Ml Oral.Conc PO 11/11/24 08:35 120 mg ONCE ONE Administration Midazolam HCl 1 mg 11/11/24 08:36 11/11/24 08:38 Midazolam Hcl 2 Mg/2 Ml Vial IVPUSH 11/11/24 08:37 1 mg ONCE ONE Administration Ondansetron HCl 4 mg 11/11/24 07:13 11/11/24 07:15 Ondansetron Odt 4 Mg Tab.Rapdis TRANSLINGU 11/11/24 07:14 4 mg ONCE ONE Administration Medical Decision Making Medical Decision Making [facility] Narrative: Patient given back his methadone. We verify his dose to be 120 mg. Patient has a history of marijuana use has a history of cyclic vomiting. We gave patient a dose of droperidol with some Benadryl IV fluids. Good relief of symptoms. Patient's urine was negative for infection. Tox screen was positive for multiple substances. There was no retention bladder scan showed 120 cc postvoid. Will discharge patient home now is tolerating fluids after IV fluids. Explained to patient the need to stop using multiple substances. Patient states understanding does not want detox at this time. Differential Diagnosis Differential Diagnoses: The differential diagnosis associated with the presentation includes Polysubstance abuse, cyclic vomiting syndrome Admission/Observation Consideration of admission/observation: Escalation of care including admission/observation considered Lab Data [facility] Lab Attestation statement: I reviewed the patient's lab results. 11/11/24 07:50 11/11/24 07:50 Labs: Lab Results 11/11/24 11/11/24 Range/Units 07:50 09:51 WBC 12.9 H (4.8-10.8) X10*3/uL RBC 4.46 L (4.60-5.80) X10*6/uL Hgb 13.3 L (14.0-18.0) g/dl Hct 37.9 L (42.0-52.0) % MCV 85.0 (80.0-98.0) fL MCH 29.8 (27.0-33.0) pg MCHC 35.1 (31.0-36.0) g/dl RDW 13.5 (11.0-16.0) % Plt Count 408 H (160-400) X10*3/uL MPV 10.6 (9.4-12.4) fL Immature Gran % (Auto) 0.6 H (0.0-0.4) % Neut % (Auto) 75.4 H (45-73) % Lymph % (Auto) 13.9 L (20-40) % Benzie % (Auto) 9.9 (2-11) % Eos % (Auto) 0.1 (0-4) % Baso % (Auto) 0.1 (0-2) % Lymph # (Auto) 1.8 (1.2-4.9) X10*3/uL Benzie # (Auto) 1.3 H (0.1-1.2) X10*3/uL Eos # (Auto) 0.0 (0.0-0.4) X10*3/uL Baso # (Auto) 0.0 (0.0-0.2) X10*3/uL Abs Immat Gran (auto) 0.08 H (0.00-0.03) X10*3/uL Absolute Neuts (auto) 9.7 H (2.0-8.3) x10*3/uL Absolute Nucleated RBC 0.000 (0.0-0.012) X10*3/uL Nucleated RBC % (auto) 0.0 (0.0-0.2) /100WBC Sodium 137 (135-145) mmol/L Potassium 3.1 L (3.3-5.1) mmol/L Chloride 93 L (96-108) mmol/L Carbon Dioxide 33 H (22-29) mmol/L Anion Gap 14 (12-20) BUN 11 (9-16) mg/dL Creatinine 0.80 (0.5-1.4) mg/dL Estim Creat Clear Calc 146.0 Estimated GFR > 60 Fasting Glucose 128 H (60-99) mg/dL Calcium 9.8 (8.4-10.2) mg/dL Urine Color Yellow Urine Appearance Clear Urine pH 8.5 (5.0-9.0) Ur Specific Minetto 1.015 (1.005-1.025) Urine Protein Trace (Neg-Trace) mg/dL Urine Glucose (UA) Negative (Negative) mg/dL Urine Ketones Trace (Negative) mg/dL Urine Blood Negative (Negative) Urine Nitrite Negative (Negative) Ur Leukocyte Esterase Negative (Negative) Urine RBC 0-2 (0-2) /HPF Urine WBC 0-5 (0-5) /HPF Ur Squamous Epith Cells 0-2 (0-2) /HPF Urine Bacteria None Seen (None Seen) Hyaline Casts 0-2 (0-2) /LPF Urine Opiates Screen Not Detected (Not Detect) Ur Buprenorphine Scrn Not Detected (Not Detect) ng/mL Ur Oxycodone Screen Not Detected (Not Detect) ng/mL Urine Methadone Screen Positive H (Not Detect) ng/mL Urine Fentanyl Screen POSITIVE H (Not Detect) Ur Barbiturates Screen Not Detected (Not Detect) Ur Phencyclidine Scrn Not Detected (Not Detect) Ur Amphetamines Screen Not Detected (Not Detect) U Benzodiazepines Scrn POSITIVE H (Not Detect) Urine Cocaine Screen Not Detected (Not Detect) U Marijuana (THC) Screen POSITIVE H (Not Detect) Ethyl Alcohol 10 mg/dL Social Determinants Patient?s care significantly limited by Social Determinants of Health including: Alcoholism and drug addiction in family and Problems related to primary support group Discharge Plan Discharge Clinical Impression: Polysubstance abuse, Cyclic vomiting syndrome Patient Disposition: Home, Self-Care Instructions: Cyclic Vomiting Syndrome (ED) Prescriptions: No Action methadone [Methadone Intensol] 10 mg/mL Concentrate 120 mg PO DAILY metoclopramide HCl [Reglan] 10 mg tablet 10 mg PO Q8H PRN (Reason: nausea and vomiting) Qty: 20 0RF Referrals: Physician,None [Primary Care Provider, Medical] Referral Note: Please go to detox. Please stop using recreational drugs. Print Language: Faroese
--- NOTE | 2024-11-11 07:55 | HE.PHANOTE ---
Methadone confirmation form Patient takes 120 mg from ctc. last dose given 11/07 with 1 take home for 11/08
[2024-11-11 08:09] LABS: MANUAL DIFF FLAG NO
[2024-11-11 08:20] LABS: Hematocrit 37.9 % (42.0-52.0); Hemoglobin 13.3 g/dl (14.0-18.0); Imm Gran Abs Auto 0.08 X10*3/uL (0.00-0.03); Imm Gran Pct Auto 0.6 % (0.0-0.4); Lymphocytes Absolute Auto 1.8 X10*3/uL (1.2-4.9); Mean Corpuscular HGB Conc 35.1 g/dl (31.0-36.0); Mean Corpuscular Hemoglobin 29.8 pg (27.0-33.0); Mean Corpuscular Volume 85.0 fL (80.0-98.0); NRBC Abs Auto 0.000 X10*3/uL (0.0-0.012); NRBC Pct Auto 0.0 /100WBC (0.0-0.2); Platelet Count 408 X10*3/uL (160-400); Red Blood Count 4.46 X10*6/uL (4.60-5.80); White Blood Count 12.9 X10*3/uL (4.8-10.8)
[2024-11-11 08:25] LABS: Anion Gap 14 (12-20); Blood Urea Nitrogen 11 mg/dL (9-16); Calcium 9.8 mg/dL (8.4-10.2); Carbon Dioxide 33 mmol/L (22-29); Chloride 93 mmol/L (96-108); Creatinine Clr Calc Pharmacy 146.0; Estimated Glomerular Filt Rate > 60; Potassium 3.1 mmol/L (3.3-5.1); Sodium 137 mmol/L (135-145)
--- NOTE | 2024-11-11 08:41 | PC.NURSE ---
Pt yelling for help, thrashing around on stretcher with his mouth wide open; pt reports an adverse reaction to Droperidol IVP gv per orders; med was diluted and pushed slowly by this RN; pt states he feels stiff all over and is panciked; MD myers aware; pt gv meds per orders with +relief of sx's at this time; pt moved nearer to RN station for safety; will cont to monitor/tx per orders
--- NOTE | 2024-11-11 09:15 | PC.NURSE ---
Pt states muscle cramps and panic returning; made aware; no orders at this time
[2024-11-11] MEDS: methADONE HCl 20 MG/2 ML ORAL.CONC 120 MG PO (09:22)
[2024-11-11 09:26] VITALS: BP 131/83; BP 145/87; PULSE 89; PULSE 90; RESP 16; RESP 18; TEMP 36.8; TEMP 37; O2SAT 100; O2SAT 97
--- NOTE | 2024-11-11 09:53 | PC.NURSE ---
Pt ambulating in hallway with steady, independent gait; pt tolerated PO fluids with N/V at this time
[2024-11-11 10:01] LABS: Appearance Urine Clear; Glucose Urine UA Negative (Negative); PH 8.5 (5.0-9.0); Specific Gravity - Urine 1.015 (1.005-1.025)
[2024-11-11 10:09] LABS: Cannabinoid Screen Urine POSITIVE (Not Detect)
[2024-11-11 10:45] VITALS: BP 129/63; PULSE 88; RESP 16; TEMP 36.6; O2SAT 100
== END 2024-11-11 10:50 | disposition home or self-care (01) ==
PROVIDERS: Emergency Provider Emergency Medicine Emergency Medical Services
DX: F19.10 Other psychoactive substance abuse, uncomplicated (principal); R11.15 Cyclical vomiting syndrome unrelated to migraine; R53.1 Weakness
CPT/HCPCS: 36415; 80048; 80307; 81001; 85025; 96361; 96374; 96375; 99284; J1200; J1790; J2250

== ENCOUNTER 2024-12-19 09:07 | Emergency (ER) | payer OTHER, SELFPAY ==
[2024-12-19 09:15] VITALS: BP 170/100; PULSE 65; O2SAT 98
[2024-12-19 09:37] VITALS: BP 140/75; PULSE 52; RESP 16; TEMP 36.9; O2SAT 97; BMI 29.2
[2024-12-19 09:42] VITALS: BP 140/75; PULSE 52; RESP 16; TEMP 36.9; O2SAT 97
--- NOTE | 2024-12-19 09:46 | PC.NURSE ---
Pt comes to ED via EMS. Per Pt, chief complaint is n/v starting this AM. Pt reports some stabbing abd pain with his n/v, denies diarrhea. Pt reports taking Methadone daily, except this AM as he was unable to get to the clinic. Pt chooses not to respond to this RN was asked about other drug use. Report from charger tester receive that Grandmother called with concerns for THC, Fentanyl, and Xanax use. Pt is A&Ox3 VSS No evidence of active vomiting at this time. Pt is resting quietly on stretcher Awaiting ED provider.
--- NOTE | 2024-12-19 09:48 | ED.GENADULT ---
HPI - General Adult General Chief complaint: Abdominal Pain Stated complaint: ABD PAIN,N/V,?OPIATE WITHDRAWAL,BP 175/100 PER EM Time Seen by Provider: 12/19/24 09:48 Source: patient, EMS, RN notes reviewed and old records reviewed Mode of arrival: EMS Limitations: no limitations History of Present Illness ED Provider: Sedrick [facility] narrative: Patient is a 19-year-old male with history of opioid use disorder on methadone, cannabinoid hyperemesis syndrome presenting to the emergency department with complaint of nausea and vomiting for the past 2 days. Reports associated generalized abdominal pain. Denies diarrhea or fever. States that he gets his methadone at the [facility] on [address] [facility] in [place], received his dose yesterday but vomited afterwards. Did not receive a dose today. Emesis non-bloody, non-bilious, no known sick contacts. Denies fevers. MD complaint: nausea and vomiting Onset (ago): day(s) Related Data Home Medications ?Medication ?Instructions ?Recorded ?Confirmed methadone 10 mg/mL oral 80 mg PO DAILY 10/02/24 12/19/24 concentrate (Methadone Intensol) Previous Rx's ?Medication ?Instructions ?Recorded metoclopramide HCl 10 mg tablet 10 mg PO Q8H PRN nausea and 10/20/24 (Reglan) vomiting #20 tabs Allergies Allergy/AdvReac Type Severity Reaction Status Date / Time haloperidol (From Haldol) Allergy Unknown Verified 12/19/24 09:41 droperidol AdvReac Muscle Verified 12/19/24 09:41 cramps Review of Systems Review of Systems: As per HPI Yes all other systems are reviewed and are negative Constitutional: Constitutional: Reports as per HPI [facility] Past Medical History Medical History Prolonged QT interval Opioid use disorder Cannabinoid hyperemesis syndrome Social History Social History Unable to assess alcohol history related to: Unknown Alcohol intake: unknown Smoked in Last 30 Days: Yes Use of substances other than those prescribed or required for medical reasons: Refusing to respond Substance Use Type: Marijuana and Opiates Advance Directives: No Advance Directives Information Provided: Yes Do you have a plan to hurt others: No Plan Physical Exam ED Vital Signs: Vital Signs - 24 hr 12/19/24 09:37 12/19/24 09:42 12/19/24 18:19 Temperature 98.4 F 98.4 F 97.8 F Pulse Rate 52 52 62 Respiratory Rate 16 16 14 Blood Pressure 140/75 H 140/75 H 139/69 Pulse Oximetry 97 97 98 Oxygen Delivery Method Room Air Room Air Room Air BMI result Body Mass Index 29.2 Vital signs have been reviewed and appear to be correct. Blood pressure normal. Heart rate bradycardic. Respiratory rate normal. Temperature normal. Oxygen saturation normal. Const General: cooperative and no acute distress Orientation/consciousness: oriented to person, oriented to place, oriented to time and patient oriented x3 Limitations: no limitations HENMT Head: Yes normocephalic and Yes atraumatic Ears: external ears normal General nose exam: Normal external nose present Face and sinus: Yes face symmetric Mouth: oropharynx normal and moist mucous membranes Throat: Yes uvula midline Eyes Pupils: Equal, round and reactive pupils present Neck Neck: Yes normal visual inspection and Yes supple Resp Effort & Inspection: normal respiratory effort and able to speak in complete sentences Auscultation: clear to auscultation bilaterally Cardio Rate: regular rate Rhythm: regular rhythm Heart sounds: S1 normal heart sound present and S2 normal heart sound present GI Palpation (GI): Soft to palpation and nontender Auscultation: normoactive bowel sounds General: Yes no CVA tenderness Back/Spine/Pelvis Back: no CVA tenderness Skin General skin exam: elasticity normal and turgor normal Neuro General: oriented to person, oriented to place, oriented to time, patient oriented x3, moves all extremities, no focal motor deficits and CN's II-XI intact bilaterally Cranial nerves: Yes Equal, round and reactive pupils present Cognition (Neuro): normal cognition Extrem General: Yes full ROM, Yes no pedal edema and Yes no calf tenderness Psych Mental Status: mental status grossly normal Affect: normal affect Thought process: Normal thought process present Course Reevaluation(s) Reevaluation #1: 9:53 PM 12/19/2024 (Mounika AMIN): Patient was signed out to this provider at shift change, in summary the patient is a 19-year-old male with a history of hyperemesis gravidarum presenting to the ED for severe nausea and vomiting. Patient received multiple medications in the ED, at time of sign-out patient was receiving his methadone and undergoing p.o. challenge. At this time the patient has successfully completed p.o. challenge with no additional vomiting. Patient will be discharged to the care of himself in his family who are working to set up outpatient detox placement. Medications Administered Discontinued Medications Generic Name Dose Route Start Last Admin Trade Name Wesley PRN Reason Stop Dose Admin Diphenhydramine HCl 50 mg 12/19/24 14:19 12/19/24 14:23 Diphenhydramine Hcl 50 Mg/Ml Vial IVPUSH 12/19/24 14:20 50 mg ONCE ONE Administration Sodium Chloride 1,000 mls @ 999 mls/hr 12/19/24 10:30 12/19/24 12:55 Ns IV 12/19/24 11:30 Infused .Q1H1M PRABHJOT Infusion Sodium Chloride 1,000 mls @ 999 mls/hr 12/19/24 12:30 12/19/24 15:29 Ns IV 12/19/24 13:30 Infused .Q1H1M PRABHJOT Infusion Methadone HCl 80 mg 12/19/24 18:33 12/19/24 19:02 Methadone Hcl 20 Mg/2 Ml Oral.Conc PO 12/19/24 18:34 80 mg ONCE ONE Administration Midazolam HCl 2 mg 12/19/24 15:12 12/19/24 15:33 Midazolam Hcl 2 Mg/2 Ml Vial IVPUSH 12/19/24 15:13 2 mg ONCE ONE Administration Ondansetron HCl 4 mg 12/19/24 10:19 12/19/24 10:23 Ondansetron Hcl 4 Mg/2 Ml Vial IVPUSH 12/19/24 10:20 4 mg ONCE ONE Administration Prochlorperazine Edisylate 10 mg 12/19/24 12:21 12/19/24 12:57 Prochlorperazine Edisylate 10 Mg/2 Ml Vial IVPUSH 12/19/24 12:22 10 mg ONCE ONE Administration Medical Decision Making Medical Decision Making MDM Narrative: Patient is a 19-year-old male with history of opioid use disorder on methadone, cannabinoid hyperemesis syndrome presenting to the emergency department with complaint of nausea and vomiting for the past 2 days. On exam patient is awake, A+Ox3, VS WNL, afebrile, normal neurological exam without focal deficits, physical exam findings as above. Given reported symptoms and physical exam findings, initial differential includes but is not limited to gastroenteritis, methadone withdrawal, cannabinoid hyperemesis, viral illness, electrolyte abnormality. History of prolonged QTc, EKG obtained which show sinus bradycardia with normal QTc. Fluids and zofran ordered. Labs notable for no leukocytosis. Patient denies relief of nausea from Zofran, will order Compazine. Per RN, grandmother now at bedside and requesting recovery consult for patient. Notified by RN that patient having dystonic reaction to Compazine, Benadryl ordered. Grandmother now at bedside, states lorazepam typically works well to control patient's symptoms. Patient states he is still having nausea and is unable to tolerate PO. No IV Ativan available. She states that whatever he got last time worked well also. Review of EMR shows patient received midazolam on 11/11 visit, will try this for symptoms. Patient now stating his nausea has improved, is willing to try tolerating ice chips. Able to tolerate ice chips, will order his daily methadone. Differential Diagnosis Differential Diagnoses: The differential diagnosis associated with the presentation includes as per [facility] Admission/Observation Consideration of admission/observation: Escalation of care including admission/observation considered Patient would have been admitted to the hospital had their clinical presentation warranted hospital admission. Lab Data [facility] Lab Attestation statement: I reviewed the patient's lab results. as per [facility] 12/19/24 10:12 12/19/24 15:26 Labs: Lab Results 12/19/24 12/19/24 12/19/24 Range/Units 10:12 10:28 15:26 WBC 10.8 (4.8-10.8) X10*3/uL RBC 4.70 (4.60-5.80) X10*6/uL Hgb 14.1 (14.0-18.0) g/dl Hct 41.0 L (42.0-52.0) % MCV 87.2 (80.0-98.0) fL MCH 30.0 (27.0-33.0) pg MCHC 34.4 (31.0-36.0) g/dl RDW 13.7 (11.0-16.0) % Plt Count 414 H (160-400) X10*3/uL MPV 10.4 (9.4-12.4) fL Immature Gran % (Auto) 0.4 (0.0-0.4) % Neut % (Auto) 87.5 H (45-73) % Lymph % (Auto) 7.0 L (20-40) % Letcher % (Auto) 4.8 (2-11) % Eos % (Auto) 0.0 (0-4) % Baso % (Auto) 0.3 (0-2) % Lymph # (Auto) 0.8 L (1.2-4.9) X10*3/uL Letcher # (Auto) 0.5 (0.1-1.2) X10*3/uL Eos # (Auto) 0.0 (0.0-0.4) X10*3/uL Baso # (Auto) 0.0 (0.0-0.2) X10*3/uL Abs Immat Gran (auto) 0.04 H (0.00-0.03) X10*3/uL Absolute Neuts (auto) 9.5 H (2.0-8.3) x10*3/uL Absolute Nucleated RBC 0.000 (0.0-0.012) X10*3/uL Nucleated RBC % (auto) 0.0 (0.0-0.2) /100WBC Sodium 142 (135-145) mmol/L Potassium 3.9 D (3.3-5.1) mmol/L Chloride 108 (96-108) mmol/L Carbon Dioxide 26 (22-29) mmol/L Anion Gap 12 (12-20) BUN 10 (9-16) mg/dL Creatinine 0.74 (0.5-1.4) mg/dL Estim Creat Clear Calc 164.1 Estimated GFR > 60 Random Glucose 114 (60-115) mg/dL Calcium 8.8 D (8.4-10.2) mg/dL Total Bilirubin 0.4 (0.0-1.0) mg/dL AST 20 (5-37) U/L ALT 10 (0-40) U/L Alkaline Phosphatase 90 (39-117) U/L Total Protein 6.7 (6.5-8.0) g/dL Albumin 4.1 (3.5-5.0) g/dL Influenza Type A (PCR) NEGATIVE (Negative) Influenza Type B (PCR) NEGATIVE (Negative) RSV RNA Qual (PCR) NEGATIVE (Negative) SARS-CoV-2 RNA (RT-PCR) NEGATIVE (Negative) Independent Interpretation I performed an independent interpretation of an: EKG (Right VATS bradycardia, rate 50 beats per minute, normal NE interval and QTC) Independent Historian Clinical information obtained from an independent historian. History obtained from or confirmed by: Other (grandmother) External Record Review External record reviewed: Inpatient record, Office record and Outpatient record Critical Care Time Critical Care Time Critical Care Time: Yes Total Critical Care Time: 47 Attestation: I have personally provided critical care time exclusive of time spent on separately billable procedures. Time includes review of lab data, radiology results, discussion with consultants, and monitoring for potential decompensation. Intervention performed as documented. Discharge Plan Discharge Clinical Impression: Nausea & vomiting Qualifiers: Vomiting type: unspecified Qualified Code(s): R11.2 - Nausea with vomiting, unspecified Patient Disposition: Home, Self-Care Instructions: Acute Nausea and Vomiting (DC), Acute Nausea and Vomiting (ED) Additional Instructions: You were evaluated in the emergency department today for epigastric pain, nausea and vomiting which is most likely due to irritation of the lining of your stomach. Your symptoms improved with medication in the ED. You are being prescribed ondansetron which you can use every 8 hours for nausea. You can also use Mylanta, which is available over the counter, to help manage your symptoms. Avoid spicy or acidic foods. Avoid cannabis use as this can cause cyclical nausea and vomiting. Please follow up with your primary care physician within two days. Return to the emergency department if you experience shortness of breath, worsening or uncontrolled abdominal pain, chest pain, light headedness, faiting, persistent nausea and vomiting, bloody vomit or stools, black, tarry stools, or any other concerning symptoms. Prescriptions: No Action methadone [Methadone Intensol] 10 mg/mL Concentrate 80 mg PO DAILY metoclopramide HCl [Reglan] 10 mg tablet 10 mg PO Q8H PRN (Reason: nausea and vomiting) Qty: 20 0RF Print Language: Mauritian
--- NOTE | 2024-12-19 09:49 | ECG_ITS ---
Test Reason : ASSESS QT INTERVAL Blood Pressure : */* mmHG Vent. Rate : 50 BPM Atrial Rate : 50 BPM P-R Int : 118 ms QRS Dur : 86 ms QT Int : 462 ms P-R-T Axes : 44 41 17 degrees QTcB Int : 421 ms Sinus bradycardia Otherwise normal ECG When compared with ECG of 20-Oct-2024 06:13, No significant change was found Referred By: Jovanna Dubose Electronically Signed By: DIANA HARRISON
[2024-12-19 10:17] LABS: MANUAL DIFF FLAG NO
[2024-12-19 10:20] LABS: Hematocrit 41.0 % (42.0-52.0); Hemoglobin 14.1 g/dl (14.0-18.0); Imm Gran Abs Auto 0.04 X10*3/uL (0.00-0.03); Imm Gran Pct Auto 0.4 % (0.0-0.4); Lymphocytes Absolute Auto 0.8 X10*3/uL (1.2-4.9); Mean Corpuscular HGB Conc 34.4 g/dl (31.0-36.0); Mean Corpuscular Hemoglobin 30.0 pg (27.0-33.0); Mean Corpuscular Volume 87.2 fL (80.0-98.0); NRBC Abs Auto 0.000 X10*3/uL (0.0-0.012); NRBC Pct Auto 0.0 /100WBC (0.0-0.2); Platelet Count 414 X10*3/uL (160-400); Red Blood Count 4.70 X10*6/uL (4.60-5.80); White Blood Count 10.8 X10*3/uL (4.8-10.8)
--- OUTSIDE RECORDS SUMMARY | 2024-12-19 10:23 | XMS_ITS | Clinical Summary ---
Author Organization [facility] Address [address] [place], [place] [id number] Care Team Providers Care Emt/Paramedic Name Role Phone Unavailable Primary Care Provider [...]
--- OUTSIDE RECORDS SUMMARY | 2024-12-19 10:23 | XMS_ITS | Clinical Summary ---
Author Organization [facility] Address [address] [place] [id number] Phone Care Team Providers Care Hollow Ware Maker Name Role Phone Mary Domínguez APRN Primary Care Provide r Unavailable Allergies No known active allergies Medications capsaicin (ZOSTRIX) 0.025 % cream Apply topically 3 (three) times a day. 45 g 01/29/20 Active Additional Information Patient not taking.Reported on 06/17/2020 NIFEdipine (PROCARDIA XL) 60 MG 24 hr tablet Take 1 tablet (60 mg total) by mouth 2 (two) times a day. 60 tablet 01/29/20 Active omeprazole (PRILOSEC) 20 MG capsule Take 1 capsule (20 mg total) by mouth 2 (two) times a day before meals. 60 capsule 01/29/20 Active Additional Information Patient not taking.Reported on 06/17/2020 ondansetron (ZOFRAN-ODT) 8 MG disintegrating tablet Take 1 tablet (8 mg total) by mouth every 8 (eight) hours as needed. 5 tablet 01/29/20 Active Additional Information Patient not taking.Reported on 06/17/2020 diphenhydrAMINE (BENADRYL) 25 mg capsule Take 1 capsule (25 mg total) by mouth every 6 (six) hours as needed. 15 capsule 01/29/20 Active Additional Information Patient not taking.Reported on 06/17/2020 ondansetron (ZOFRAN-ODT) 4 MG disintegrating tablet Take 1 tablet (4 mg total) by mouth every 8 (eight) hours as needed for nausea. 5 tablet 06/17/19 21 Active Active Problems Patient Care Coordination No te Formatting of this note migh t be different from the original. [facility] BP checks: [place], [place] [facility] nurse: Gogo Problem Noted Date Diagnosed Date Screening for blood or protein in urine 02/07/20 19 Erythema of upper extremity 01/24/2019 Assessment & Plan (01/28/2019 1:51 AM EDT): Overnight, Olayinka was noted to have redness, tenderness, and firmness of the ventral aspect of the right forearm and antecubital fossa. Movement, distal pulses intact, no swelling. Not warm to the touch, firm as opposed to fluctuant. Most concerning for superficial thrombophlebitis given recent irritation from IV and IV medication administration. Should also consider cellulitis vs. Abscess, but lower on the differential at this time. Monitoring: - Continue to monitor area of erythema for expansion/progression Diagnosis: [x] right upper extremity ultrasound -- superficial thrombus Treatment: - Supportive care with warm compresses, NSAIDs. Anti-coagulation not recommended at this time. Nicotine use disorder 01/21/2019 Assessment & Plan (01/23/2019 5:31 AM EDT): Daily use of 2 Juuls per day, equating to roughly 40 cigarettes per day Tx: -Nicotine patch 21mg+7mg patch daily Consults: - Smoking cessation team, appreciate recs. Anxiety 01/21/2019 Assessment & Plan (01/27/2019 11:33 AM EDT): Per psych interview in PICU, patient endorses anxiety at baseline. There is an element of self medication with substances. No psychotic symptoms, SI/HI, manic symptoms. Tx: - Psychiatry following Agitation plan per psych: Haloperidol 5mg PO/IM?? and lorazepam 2mg PO/IM, please hold for sedation and do not repeat more than x1 at [id number] without re-consulting psychiatry as appropriate???: -- Please consider ECG as appropriate to monitor for QTC prolongation (>450ms) specifically if restraint used more than one time or patient has received >1 antipsychotic medication??? -- If giving these medications for acute agitation, please consider aggressive monitoring of electrolytes and replete as necessary:??? Goal Potassium >4.0??? Goal Magnesium >2.0??? Consult - Psych, appreciate recs. Cannabis use disorder, severe, dependence 2018 Assessment & Plan (01/20/2019 9:09 PM EDT): # Cannabis use disorder: Pt is a 13 yo M w hx of daily cannabis use x 1 year as well as previous episode of intractable vomiting ~2 years ago, transferred from [facility] after presenting to the ED there with ~4 days of intractable vomiting and compulsion for hot showers. While there, he received several antiemetics including compazine, ativan, benadryl without relief, and tried a capsaicin cream with some relief. Initial CBC, LFTs reassuring. BMP notable for hypokalemia. Dx: - F/U UA and VPAIN urine screen Tx: - mIVF - Replete lytes PRN - EKG QTc drug monitoring - Ativan PRN nausea - Benadryl PRN nausea - Haldol PRN nausea - Capsaicin cream/patch # Nicotine use disorder Patient also reports smoking Juuls daily. - Nicotine Patch - ACT consulted; appreciate recommendations - Smoking cessation team consulted; appreciate recommendations # Constipation: No BM in several days, however he also has not eaten in several days, and KUB at outside hospital showed normal bowel gas pattern. - Continue to monitor. - Clear liquids #Hypertension Pressures in the 130s-140s throughout most of the hospitalization, with most recent pressures 160s/110s. These pressures persisted even while sleeping. Most likely in the setting of cannabis and nicotine withdrawal. Another possibility is that this is due increased vascular tone due to RAAS in overdrive iso of severe volume depletion. Dx: - Renal US - Thyroid Panel Tx: - Hydralazine PRN for goal systolic blood pressure < 150 - Renal c/s: renal ultrasound 01/21 AM - UOP goal 1cc/kg/hour #Agitation Psychiatry consult at [facility] recommended lamictal and prn hydroxizine. Will hold off on these for now, with psychiatric consultation in the morning. - Pediatric Psychiatry Consulted; appreciate recommendations Cannabis hyperemesis syndrom e concurrent with and due to cannabis abuse 01/20/2019 Assessment & Plan (01/28/2019 1:57 AM EDT): Emesis frequency and volume have both decreased, no longer bloody-streaked like in previous episodes. He has been able to tolerate food and PO fluids without significant emesis. Cannabis hyperemesis syndrome best explains current clinical picture, given daily cannabis use x 1 year, intractable vomiting, and compulsion for hot showers. There is also history that he has used cookie strain of cannabis before developing GI symptoms, which has a higher potency than other strains (per Psych note: https://www.ncbi.nlm.nih.gov/pmc/articles/OPZ6744325/). Other etiologies for hyperemesis include some sort of obstruction, however x ray abdomen at OSH and here on 01/26 showed non-obstructive gas pattern and emesis has been non bilious with benign abdominal exam. Of note, he has had similar clinical presentation and diagnosis at OSH in past. Floor course has been notable for one episode of disorientation/confusion early in the morning 01/21 since arriving to the floor during which mother reported he awoke and did not know where he was. Disorientation can be explained by many potentially sedating/anti-cholinergic meds that he has recently received (benadryl, haldol, lorazepam), versus anxiety or ICU delirium. Electrolyte abnormalities may be considered in the differential given continued emesis, though admission BMP WNL, and less likely given lack of significant large volume emesis (more wretching). Much less likely acute intracranial process given negative CT w/o contrast at OSH and isolated incidence (although of note, mom does report had one similar episode at OSH). No headache or vision changes and not significantly hypertensive during this episode reassuring against hypertensive emergency. Reassuringly, confusion quick to resolve and patient is alert and oriented with overall normal neuro exam directly following although somewhat limited by cooperation. Dx: - Clinical presentation as above Tx: - Capsaicin TID - Hot showers - 5mg Zyprexa TID - 2.5mg Zyprexa PRN daily - PO Benadryl + PO Ativan PRN for break through emesis when trying to take blood pressure medication - omeprazole 20 mg BID Monitoring: - Strict intake and output Consults: - Psychiatry, appreciate their excellent recs - Gastroenterology and nutrition consults Hypertension 01/20/2019 Assessment & Plan (01/27/2019 10:54 AM EDT): Currently 140s-150s/70s-90s. Some reported transient HTN with wretching. Systolic max of 190s while in PICU, went down appropriately with nicardipine drip. No signs of end organ damage that would be concerning for sequelae of hypertensive emergency (CPK low, LFTs wnl, creatinine wnl). No known prior history of hypertension. It is unexpected in cannabis hyperemesis syndrome to have such high blood pressures. Hyperthyroidism unlikely given TSH within normal limits. Renal artery stenosis was considered, as it is a leading cause of secondary hypertension; ruled out by renal ultrasound. Pheochromocytoma also considered as possible etiology, though would expect other symptoms (hx of episodic diaphoresis, tachycardia, headache, abdominal pain), however will obtain orthostatics and plasma metanephrines. Alcohol withdrawal was considered in this patient with hx of polysubstance use, though unlikely given reported history of very infrequent alcohol use; last drink reported to be on about 01/14. Cardiology work up notable for EKG with T wave inversion in lateral leads, unclear etiology, but normal troponins and BNP and patient evaluated by Cardiology in PICU. TTE on 01/20 unremarkable. Blood pressure continues to be poorly controlled at night while patient is at rest and not wretching. Dx: [x] s/p 01/21 US Renal artery / veins duplex to rule out renal artery stenosis -- normal [x] Screening TSH -- normal [x] Orthostatic vitals [x] Free catecholamines, plasma -- 55 (low) [x] Metanephrines, plasma -- 0.21 (normal) Tx: -s/p 01/20 nicardipine drip -s/p amlodipine 5 mg (01/21-01/23) -nicardipine 60 mg am, 60mg pm; hold if SBP < 110 -If systolic > 160mmHg, page renal attending Monitoring: -Vitals q 4 hr Consults: - Renal, appreciate their recs Chest pain 01/20/2019 Obesity 07/03/2007 Overview (07/02/2014): Obesity Asthma 04/21/2007 Overview (07/02/2014): Asthma Immunizations Immunization Administration Dates Next Due DTaP, unspecified formulation 07/03/2007 ,02/01/2004,2003,2003 [id number] FORMULATION 03/28/2009 Hepatitis B, unspecified formulation 08/27/2008, 2003,2003 Hib, unspecified formulation 02/01/2004,10/28/19 04,2003 Influenza Quadrivalent Prese rvative Free IM 01/28/2019(Deferred: Patient Refused) Influenza, Unspecified Formulation 03/28/2009 MMR 09/03/2008,07/03/2007 Pneumococcal conjugate, PCV 7 02/01/2004, 004,2003 Polio, Unspecified Formulation 08/27/2008,2003,2003 Varicella 09/03/2008,07/03/2007 Social History Tobacco Use Types Packs/Day Years Used Date Smoking Tobacco: Every Day Cigarettes 1 3 Tobacco Cessation:Ready to Q uit: No; Counseling Given: Yes Comments:Juul's 1-2 pods per day Alcohol Use Standard Drinks/Week Comments Yes 0 (1 standard drink = 0.6 oz pur e alcohol) Drank >2 weeks ago Education Answer Date Recorded Are you interested in more education? Not on ihsan e 09/07/2022 Are you concerned about learning? Not on file 09/07/2022 No 09/07/2022 No 09/07/2022 Digital Access Answer Date Recorded No 10/08/2022 No 10/08/2022 Reliable internet access at home? Not on file 10/08/2022 Device with a working camera? Not on file Sex and Gender Information Value Date Recorded Sex Assigned at Not on file Legal Sex Male 1:01 AM EST Gender Identity Not on file Sexual Orientation Not on file Last Filed Vital Signs Vital Sign Reading Time Taken Comments Blood Pressure 134/71 06/17/2020 11:15 AM EST Pulse 61 06/17/2020 11:15 AM EST Temperature 36.8 C (98.2 F) 06/17/2020 11:26 AM EST Respiratory Rate 18 06/17/2020 11:15 AM EST Oxygen Saturation 96% 06/17/2020 11:15 AM EST Inhaled Oxygen Concentration - - Weight 71.7 kg (158 lb) 06/17/2020 9:35 AM EST Height 171.5 cm (5' 7.5 ) 02/03/2019 10:18 AM ED T Body Mass Index - - Plan of Treatment Health Maintenance Due Date Last Done Comments BLOOD PRESSURE 2003 PEDIATRIC ASTHMA CONTROL TEST (ACT) 2007 DEPRESSION SCREENING 2015 SMOKING Hx and SMOKELESS TOBACCO SCREENING 2016 MENINGOCOCCAL VACCINES (B) (1 of 2 - Standard) 2019 ADOLESCENT UNIVERSAL LIPID SCREENING 2020 01/28/2019 HEPATITIS C SCREENING 2021 HIV ONE-TIME SCREENING (18-65 YEARS) 2021 PNEUMOCOCCAL VACCINES (0-49 years) (1 of 2 - PCV) 2022 09/26/2004, 02/01/2004, 02/01/2004, Additional history exists COVID-19 VACCINE ( - 2023- season) 2024 Adult Td,Tdap Booster 05/02/2025 05/02/2015 COMBINED DTaP,Tdap,Td (7 - Td or Tdap) 05/02/2025 05/02/2015, 07/03/2007, 09/26/2004, Additional history exists HIB VACCINES Aged Out 02/01/2004, 10/11, 2003 No longer eligible based on patient's age to complete this topic MMR VACCINES Completed 09/03/2008, 06/14, 06/23/2004 HEPATITIS A VACCINES Completed 01/29/2020, 02/11/2019, 10/23/2017 HPV VACCINES Completed 01/29/2020, 06/2018, 10/23/2017 MENINGOCOCCAL VACCINES (ACWY) Completed 01/29/2020, 05/02/2015 Medical Devices Not on file Procedures Procedure Name Priority Date/Time Associated Diagnosis Comments LIPID PANEL Routine 01/28/2019 11:06 AM EDT from Last 3 Months or Most Recently Relevant to Health Maintenance Results * (ABNORMAL) Lipid panel (01/28/2019 11:06 AM EDT) HDL 30(L) 35 - 100 mg/dL [facility] CHOLESTEROL 71 <200 mg/dL [facility] TRIGLYCERIDES 87 40 - 150 mg/dL [facility] LDL 24(L) 50 - 129 mg/dL [facility] CARDIAC RISK RATIO 2.4 0.0 - 5.0 [facility] NON-HDL CHOLESTEROL 41 mg/dL [facility] Comment:NCEP ATP III guideli chica suggest a non-HDL cholesterol goal 30 mg/dl higher than the patient-specific LDL goal. Blood 01/28/2019 11:0 6 AM EDT 01/28/2019 11:56 AM EDT us Leigha Garcia MD LAB BLOOD ORDERABLES Final Result [address] [id number] from Last 3 Months or Most Recently Relevant to Health Maintenance Insurance [employer] C[employer] ALLANCE ACO [facility] [employer] [place] [address] [place], [place] [address]Y [facility] [employer] Advance Directives For more information, please contact: [phone] (9AM - 5PM [facility], Saturday-Saturday) * Full Code (Presumed) (Latest Code Status on File) Date Activated Date Inactivated Comments 01/20/2019 2:12 AM 01/28/2019 6:40 PM Care Teams Hollow Ware Maker Relationship Specialty Start Date End Date Mary Domínguez APRN PCP - General Unknown Provider Specialty 06/17/20 Additional Source Comments The information contained in this document represents components of the legal health record. It is not the complete legal health record.[facility]
--- OUTSIDE RECORDS SUMMARY | 2024-12-19 10:23 | XMS_ITS | Clinical Summary ---
Author Organization [facility] Address [address] [place] [address] Phone Care Team Providers Care Recycling Program Manager Name Role Phone Unavailable Primary Care Provider [...] (01/27/2020): 5 admissions for Above 4 at [facility] 03/08/19, 11/09/19, 11/17/19, 12/18/19 One at [facility] 01/29/19 Allergic rhinitis due to pollen 01/27/2020 [...] Vaccine (1 of 2 - Standard) 2019 COVID-19 Vaccine (1 - 2023-2 5 season) 2024 Influenza Vaccines (#1) 2024 03/14/20, 01/29/2020, 03/04/2015, Additional history exists DTaP,Tdap,and Td Vaccines (8 - Td or [...] Completed 01/29/2020, 015 Insurance [employer] [employer] MEDICAID [facility] NON PCC [facility] PCC [facility] MEDICAID [facility] Address: [address] [address] [place] [address]
--- OUTSIDE RECORDS SUMMARY | 2024-12-19 10:23 | XMS_ITS | Clinical Summary ---
Author Organization [facility] Address [address] [place] [address] Phone Care Team Providers Care Child Day Care Provider Name Role Phone Kim Sorto MD Primary [...] untested substance as possibility). Case reviewed with [facility] ICU team. [place] he may need more intensive monitoring for possible withdrawal issues as well as possible nephrology evaluation, neither of which is available for this age group at [facility]. Placement was found at [facility] and patient will be transferred there. Nicotine [...] infectious etiology unlikely. On arrival to [facility], his chemistries were WNL. Urine toxicology screen [...] altered sensorium on 01/18 - Referral to [facility] Adolescent Substance Abuse Program (phone: [phone]) upon discharge. Cardiovascular: Mild hypertension throughout hospitalization, felt to be due 130-140/90's nicotine withdrawal (patient initially refusing patch). Brief episodes delayed capillary refill concurrent with escalating BP. Had intermittently used nicotine patch on 01/18 and 01/19. BUN and CR on 01/19 morning normal. Unclear etiology. Discussed with [facility] recommended transfer to ICU level where [...] Electrolytes at the time of admission to [facility] were within normal limits. The patient received isotonic fluid boluses at [facility] prior to transfer to [facility], and he is received IV fluid hydration [...] appendix was visualized on CT scan at [facility]. Although gastroenteritis is a frequent cause of [...] Health Maintenance Due Date Last Done Comments [facility] Topic HIV Screening 2003 [facility] Topic HPV Vaccines (1 - Male 3-dose series) 2018 [facility] Topic Meningococcal G roup B Conjugate Vaccine (1 of 2 - Standard) 2019 [facility] Topic Pedi Lipid Pane l age (17-21 years) 2020 [facility] Topic Tdap Vaccine (1 - Tdap) 2022 [facility] Topic Influenza (Flu) Seasonal (#1) 2025 [facility] Topic Shingrix (1 of 2) 2053 [facility] Topic HIB Vaccines Aged Out No longer eligible based on patient's age to complete this topic Insurance [facility] PPO Advance Directives For more information, please contact: [phone] * Full Code (Latest Code Status on File) Date Activated Date Inactivated Comments 01/16/2019 7:37 PM 01/20/2019 5:42 AM Care Teams Child Day Care Provider Relationship Specialty Start Date End Date Kim Sorto MD [address] [place] [id number] PCP - General 11/08/16
--- OUTSIDE RECORDS SUMMARY | 2024-12-19 10:23 | XMS_ITS | Patient Health Record ---
Author Organization [facility] Address [address], [place] [id number] Care Team Providers Care Hotel Server Name Role Phone [employer] - DO NOT USE, [place] Prima ry Care Provider Unavailable Kaylynn Felix Unavailable [phone] [employer] - DO NOT USE, Mail Pick-up Unavailable Unavailable Reason For Referral No Information Plan Of Treatment No Information Insurance Providers Payer Name Payer Address Payer Phone Subscriber Number Group Number Insured Name Patient Relationship to Insured Coverage Start Date Coverage End Date [place] Medicaid Standard [address] [place] [address] [id number] Olayinka Quinones Self - patient is the insured 2 2
--- OUTSIDE RECORDS SUMMARY | 2024-12-19 10:23 | XMS_ITS | Clinical Summary ---
Author Organization [facility] Address [id number] [place] [phone] Care Team Providers Care Machine Feeder Raw Stock Name Role Phone Kim Luis MD Primary Care Provider [phone] Allergies Active Allergy Reactions Criticality Noted Date Comments Haloperidol 11/22/2024 Medications budesonide-form oteroL (SYMBICORT) 80-4.5 mcg/actuation inhaler Inhale 2 puffs by mouth 2 (two) times a day. May take additional 1 to puffs as needed every 4 hours for wheeze. Rinse mouth with water after use to reduce aftertaste and incidence of candidiasis. Do not swallow. 1 each 5 Active predniSONE (DELTASONE) 50 mg tablet Take 1 tablet (50 mg total) by mouth 1 (one) time each day for 5 days. 5 each 5 11/28/19 25 Encounters Date Type Department Care Team Description 11/22/2024 11:36 AM EDT - 11/22/2024 3:46 PM EDT [facility] Emergency [address] [place] [phone] Nash Wilder MD Mild asthma with exacerbation, unspecified whether persistent (Primary Dx); Opiate withdrawal (CMS/HCC V24, CMS/HCC V28) Discharge Disposition: Home or Self Care 10/03/2024 12:54 AM EDT - 10/03/2024 5:09 AM EDT [facility] Emergency [address] [place] [phone] Discharge Disposition: ED Dismiss - Never Arrived from Last 3 Months Medical History Medical History Date Comments Asthma Social History Tobacco Use Types Packs/Day Years Used Date Smoking Tobacco: Never Assessed Sex and Gender Information Value Date Recorded Sex Assigned at Not on file Legal Sex Male 10:34 AM EDT Gender Identity Not on file Sexual Orientation Not on file Obstetrics History Last Filed Vital Signs Vital Sign Reading Time Taken Comments Blood Pressure 154/82 11/22/2024 3:34 PM EDT Pulse 124 11/22/2024 3:34 PM EDT Temperature 36.7 C (98 F) 11/22/2024 3:34 PM EDT Respiratory Rate 18 11/22/2024 3:34 PM EDT Oxygen Saturation 94% 11/22/2024 3:34 PM EDT Inhaled Oxygen Concentration - - Weight 68 kg (150 lb) 11/22/2024 11:45 AM EDT Height 175.3 cm (5' 9 ) 11/22/2024 11:45 AM EDT Body Mass Index 22.15 11/22/2024 11:45 AM EDT Plan of Treatment Upcoming Encounters Date Type Department Care Team (Late st Contact Info) Description 04/13/2025 1:30 PM EST Office Visit Internal Medicine - [address] [phone] Kim Luis MD [address] [place] [address] Health Maintenance Due Date Last Done Comments Meningococcal B Vaccine (1 of 2 - Standard) 2019 Hepatitis B Vaccines (1 of 3 - 19+ 3-dose series) 2022 Pneumococcal Vaccine: Pediatrics (0 to 5 Years) and At-Risk Patients (6 to 49 Years) (1 of 2 - PCV) 2022 COVID-19 Vaccine ( - season) 2024 Annual Well Child Visit (3-21 years old) 03/08/2024 Cholesterol Screening (Lipid Panel) 03/08/2024 HIV Screening 03/08/2024 Hepatitis C Screening 03/08/2024 Social Influencers of Health Screening 03/08/2024 Depression Screening 05/13/2024 Influenza Vaccine (#1) 2025 , 01/29/2020, 03/04/2015, Additional history exists DTaP,Tdap,and Td Vaccines (3 - Td or Tdap) 05/02/2025 05/02/2015, 10/16/2013 MMR Vaccines Completed 09/03/2008, 07/03/2007 Varicella Vaccines Completed 09/03/2008, 07/03/2007 HPV Vaccines Completed 01/29/2020, 06/2018, 10/23/2017 Hepatitis A Vaccines Completed 01/29/2020, 02/11/2019, 10/23/2017 Meningococcal ACWY Vaccine Completed 01/29/2020, HIB [...] Procedure Name Priority Date/Time Associated Diagnosis Comments [id number], RSV, FLU A AND B QUALITATIVE RT-PCR, INTERNAL LAB STAT 11/22/2024 2:10 PM EDT XR CHEST 2 VIEWS STAT 11/22/2024 1:33 PM EDT MANUAL DIFFERENTIAL - SYSMEX WAM STAT 10/03/2024 1:12 AM EDT MAGNESIUM Add-On 10/03/2024 1:12 AM EDT CBC WITH AUTO DIFFERENTIAL STAT 10/03/2024 1:12 AM EDT ETHANOL STAT 10/03/2024 1:12 AM EDT BASIC METABOLIC PANEL STAT 10/03/2024 1:12 AM EDT CBC AND DIFFERENTIAL STAT 10/03/2024 1:12 AM EDT from Last 3 Months Results * [id number], RSV, Influenza A and B qualitative RT-PCR (11/22/2024 2:10 PM EDT) Influenza A PCR Not Detected Not Detected LAB MICROBIOLOGY METHOD 11/22/2024 3:01 PM EDT [facility] Influenza B PCR Not Detected Not Detected LAB MICROBIOLOGY METHOD 11/22/2024 3:01 PM EDT [facility] RSV PCR Not Detected Not Detected LAB MICROBIOLOGY METHOD 11/22/2024 3:01 PM EDT [facility] SARS COV-2 Not Detected Not Detected LAB MICROBIOLOGY METHOD 11/22/2024 3:01 PM EDT [facility] Swab Both anterior nares / Unknown Non-blood Collection / Unknown 11/22/2024 2:10 PM EDT 11/22/2024 2:20 PM EDT Narrative [facility] - 11/22/2024 3:01 PM EDT Disclaimer: Testing was performed using the [employer] GeneXpert Xpress SARS-CoV-2 _Flu_RSV PLUS PCR assay. The manner in which this information is used to guide patient care is the responsibility of the healthcare provider. Results should be correlated with the clinical history, epidemiological data, and other data available to the clinician evaluating the patient. Negative results do not preclude infection. This test has been authorized by the FDA under an Emergency Use Authorization (EUA). This test is only authorized for the duration of time the declaration that circumstances exist justifying the authorization of the emergency use of in vitro diagnostic tests for detection of SARS-CoV-2 virus and/or diagnosis of COVID-19 infection under section 564 (b) (1) of the Act, 21 U.S.C 360bbb-3 (b) (1), unless the authorization is terminated or revoked sooner. Reference Range: Not Detected Fact sheet for Healthcare providers can be found at https://www.fda.gov/media/818823/download. Fact sheet for Healthcare patients can be found at https://www.fda.gov/media/852970/download. Nash Wilder MD LAB MICROBIOLOGY - GENERAL FATEMEH SIMMS Final Result [facility] [address] [place] [address], [place] [phone] * XR Chest 2 Views (11/22/2024 1:33 PM EDT) Anatomical Region Laterality Modality Body Radiographic Jelena ging 11/22/2024 1:34 PM EDT Impressions 11/22/2024 1:35 PM EDT No acute findings. -------- FINAL REPORT -------- Dictated By: Raphael Schmitt Dictated Date: 11/22/2024 13:34 ET Assigned Physician: Raphael Schmitt Reviewed and Electronically Signed By: Raphael Schmitt Signed Date: 11/22/2024 13:35 ET Workstation ID: [id number] Transcribed By: Self Edit Transcribed Date: 11/22/2024 13:34 ET Narrative 11/22/2024 1:35 PM EDT PROCEDURE: PA and lateral radiographs of the chest. HISTORY: cough sob cq pna. COMPARISON: None. FINDINGS: Mildly elevated left hemidiaphragm. Lungs, pleural spaces, pulmonary vasculature, and cardiomediastinal contours are normal. Procedure Note Raphael Schmitt MD - 11/22/2024 PROCEDURE: PA and lateral radiographs of the chest. HISTORY: cough sob cq pna. COMPARISON: None. FINDINGS: Mildly elevated left hemidiaphragm. Lungs, pleural spaces, pulmonaryvasculature, and cardiomediastinal contours are normal. IMPRESSION: No acute findings. -------- FINAL REPORT -------- Dictated By: Raphael Schmitt Dictated Date: 11/22/2024 13:34 ET Assigned Physician: Raphael Schmitt Reviewed and Electronically Signed By: Raphael Schmitt Signed Date: 11/22/2024 13:35 ET Workstation ID: [id number] Transcribed By: Self Edit Transcribed Date: 11/22/2024 13:34 ET Nash Wilder MD IMG XR PROCEDURES Final Result * (ABNORMAL) Manual differential (10/03/2024 1:12 AM EDT) Neutrophils % 72.0 % LAB HEMETOLOGY METHOD 10/03/2024 2:[address] [facility] Lymphocytes % 17.0 % LAB HEMETOLOGY METHOD 10/03/2024 2:[address] [facility] Reactive Lymphocyte 5.00 % LAB HEMETOLOGY METHOD 10/03/2024 2:[address] [facility] Monocytes % 3.0 % LAB HEMETOLOGY METHOD 10/03/2024 2:[address] [facility] Eosinophils % 3.0 % LAB HEMETOLOGY METHOD 10/03/2024 2:[address] [facility] Basophils % 0.0 % LAB HEMETOLOGY METHOD 10/03/2024 2:[address] [facility] Neutrophils Absolute Manual 14.11(H) 1.50 - 7.00 K/mcL LAB HEMETOLOGY METHOD 10/03/2024 2:[address] [facility] Lymphocytes Absolute 3.33 1.00 - 5.00 K/mcL LAB HEMETOLOGY METHOD 10/03/2024 2:[address] [facility] Reactive Lymph Abs Manual 0.98(H) 0.00 - 0.00 lym LAB HEMETOLOGY METHOD 10/03/2024 2:[address] [facility] Monocytes Absolute Manual 0.59 0.20 - 1.00 K/mcL LAB HEMETOLOGY METHOD 10/03/2024 2:[address] [facility] Eosinophils Absolute Manual 0.59(H) 0.00 - 0.50 K/mcL LAB HEMETOLOGY METHOD 10/03/2024 2:[address] [facility] Basophils Absolute Manual 0.00 0.00 - 0.20 K/mcL LAB HEMETOLOGY METHOD 10/03/2024 2:[address] [facility] Rbc Morphology Consistent with indices Consistent with indices, Normal for [place] LAB HEMETOLOGY METHOD 10/03/2024 2:24 AM EDT [facility] Platelet Morphology - WAM Normal Normal LAB HEMETOLOGY METHOD 10/03/2024 2:24 AM EDT [facility] Blood Venous blood specimen / Unknown Venipuncture / Unknown 10/03/2024 1:12 AM EDT 10/03/2024 1:49 AM EDT us Avis Elizabeth MD LAB BLOOD ORDERABLES Fin al Result [facility] [address] [place] [address], * (ABNORMAL) CBC auto differential (10/03/2024 1:12 AM EDT) WBC 19.6(H) 4.8 - 10.8 K/mcL LAB HEMETOLOGY METHOD 10/03/2024 2:24 AM EDT [facility] RBC 5.80(H) 4.50 - 5.50 M/mcL LAB HEMETOLOGY METHOD 10/03/2024 2:24 AM EDT [facility] Hemoglobin 16.9 13.5 - 17.5 g/dL LAB HEMETOLOGY METHOD 10/03/2024 2:24 AM EDT [facility] Hematocrit 49.5 42.0 - 54.0 % LAB HEMETOLOGY METHOD 10/03/2024 2:24 AM EDT [facility] MCV 85.9 79.0 - 98.0 FL LAB HEMETOLOGY METHOD 10/03/2024 2:24 AM EDT [facility] MCH 29.3 27.0 - 32.0 pcg LAB HEMETOLOGY METHOD 10/03/2024 2:[address] [facility] MCHC 34.1 32.0 - 37.0 g/dL LAB HEMETOLOGY METHOD 10/03/2024 2:24 AM EDT [facility] RDW 12.1 11.0 - 15.0 % LAB HEMETOLOGY METHOD 10/03/2024 2:24 AM EDT [facility] Platelets 431(H) 130 - 400 K/mcL [facility] 10/03/2024 2:24 AM EDT [facility] MPV 11.1(H) 7.0 - 11.0 FL LAB HEMETOLOGY METHOD 10/03/2024 2:24 AM EDT [facility] NRBC 0.0 <1.0 % [facility] 10/03/2024 2:24 AM EDT [facility] NRBC Absolute 0.00 <0.10 K/mcL [facility] 10/03/2024 2:24 AM EDT [facility] Blood Venous blood specimen / Unknown Venipuncture / Unknown 10/03/2024 1:12 AM EDT 10/03/2024 1:49 AM EDT Avis Elizabeth MD LAB BLOOD ORDERABLES Fin al Result [facility] [address] [place] [address], * (ABNORMAL) Magnesium (10/03/2024 1:12 AM EDT) Magnesium 3.0(H) 1.9 - 2.6 mg/dL LAB CHEMISTRY METHOD 10/03/2024 2:56 AM EDT [facility] Blood Venous blood specimen / Unknown Venipuncture / Unknown 10/03/2024 1:12 AM EDT 10/03/2024 1:49 AM EDT Avis Elizabeth MD LAB BLOOD ORDERABLES Fin al Result Performing Organization Address [facility]/ZIP Co de Phone Number [facility] [address] [place] [address], * Ethanol (10/03/2024 1:12 AM EDT) Ethanol Level <3 0 - 10 mg/dL LAB CHEMISTRY METHOD 10/03/2024 2:10 AM EDT [facility] Blood Venous blood specimen / Unknown Venipuncture / Unknown 10/03/2024 1:12 AM EDT 10/03/2024 1:49 AM EDT Avis Elizabeth MD LAB BLOOD ORDERABLES Fin al Result Performing Organization Address [facility] Co de Phone Number [facility] [address] [place] [address], [place] [phone] * (ABNORMAL) Basic metabolic panel (10/03/2024 1:12 AM EDT) Sodium 128(L) 133 - 145 mmol/L LAB CHEMISTRY METHOD 10/03/2024 2:[address] [facility] Potassium 2.7(LL) 3.5 - 5.5 mmol/L LAB CHEMISTRY METHOD 10/03/2024 2:[address] [facility] Chloride 75(L) 96 - 110 mmol/L LAB CHEMISTRY METHOD 10/03/2024 2:[address] [facility] CO2 44(HH) 21 - 32 mmol/L LAB CHEMISTRY METHOD 10/03/2024 2:[address] [facility] Anion Gap 9 3 - 11 LAB CHEMISTRY METHOD 10/03/2024 2:[address] [facility] Glucose 91 70 - 100 mg/dL LAB CHEMISTRY METHOD 10/03/2024 2:[address] [facility] BUN 28(H) 5 - 25 mg/dL LAB CHEMISTRY METHOD 10/03/2024 2:30 AM EDT [facility] Creatinine 1.29 0.70 - 1.30 mg/dL LAB CHEMISTRY METHOD 10/03/2024 2:30 AM EDT [facility] eGFR 81 >=60 mL/min/1. 73m2 LAB CHEMISTRY METHOD 10/03/2024 2:30 AM EDT [facility] Comment:Calculation based on the Chronic Kidney Disease Epidemiology Collaboration (CKD-EPI) equation refit without adjustment for race. BUN/Creatinine Ratio 21.7 LAB CHEMISTRY METHOD 10/03/2024 2:30 AM EDT [facility] Calcium 9.8 8.5 - 10.5 mg/dL LAB CHEMISTRY METHOD 10/03/2024 2:30 AM EDT [facility] Blood Venous blood specimen / Unknown Venipuncture / Unknown 10/03/2024 1:12 AM EDT 10/03/2024 1:49 AM EDT us Avis Elizabeth MD LAB BLOOD ORDERABLES Fin al Result [facility] [address] [place] [address], from Last 3 Months Insurance [facility] [employer] Care Teams Machine Feeder Raw Stock Relationship Specialty Start Date End Date Kim Luis MD [address] [place] [phone] PCP - General Internal Medicine 07/21/24
[2024-12-19 11:22] LABS: Resp Syncy Virus RNA Qual PCR NEGATIVE (Negative); SARS COV2 PCR INHOUSE NEGATIVE (Negative)
--- NOTE | 2024-12-19 13:21 | PC.NURSE ---
This RN at bedside to medicate Pt per MAR. Pts grandmother at bedside and inquires about assistance for getting placed in detox. This RN explains that a Recovery consult can be placed and Pt will be evaluated by [facility] [place]. Pt and grandmother made aware that timeline of this service cannot be predicted and Pt would have to remain in the ED in order to benefit from this consult. Pt and grandmother both verbalize understanding of this information and agree to this plan. ED provider made aware and will place recovery referral. Pt resting with grandmother and significant other at bedside.
--- NOTE | 2024-12-19 15:24 | PC.NURSE ---
Methadone dose verified. Pt signs JOSE. Call placed to [facility] @ [phone] Spoke with Jovanna on the dose verification line who reports the following: Pt last dosed on 12/18/24 @ 0803 with 80mg. No take home doses. Methadone verification form completed and faxed to pharmacy. ED provider aware. JOSE and verification form placed in Pts hard chart.
[2024-12-19 15:45] LABS: Alanine Aminotransferase 10 U/L (0-40); Albumin Level 4.1 g/dL (3.5-5.0); Alkaline Phosphatase 90 U/L (39-117); Anion Gap 12 (12-20); Aspartate Amino Transferase 20 U/L (5-37); Blood Urea Nitrogen 10 mg/dL (9-16); Calcium 8.8 mg/dL (8.4-10.2); Carbon Dioxide 26 mmol/L (22-29); Chloride 108 mmol/L (96-108); Creatinine Clr Calc Pharmacy 164.1; Estimated Glomerular Filt Rate > 60; Potassium 3.9 mmol/L (3.3-5.1); Sodium 142 mmol/L (135-145); Total Protein 6.7 g/dL (6.5-8.0)
[2024-12-19 18:19] VITALS: BP 139/69; PULSE 62; RESP 14; TEMP 36.6; O2SAT 98
[2024-12-19] MEDS: methADONE HCl 20 MG/2 ML ORAL.CONC 80 MG PO (19:02)
[2024-12-19 21:56] VITALS: BP 148/86; PULSE 67; RESP 16; TEMP 36.8; O2SAT 98
[2024-12-19 22:34] VITALS: BP 148/86; PULSE 67; RESP 16; TEMP 36.8; O2SAT 98
== END 2024-12-19 22:38 | disposition home or self-care (01) ==
PROVIDERS: Registered Nurse Emergency; Emergency Provider Emergency Medicine Emergency Medical Services
DX: R11.2 Nausea with vomiting, unspecified (principal); R10.84 Generalized abdominal pain; R00.1 Bradycardia, unspecified; F11.20 Opioid dependence, uncomplicated; F12.90 Cannabis use, unspecified, uncomplicated; Z03.818 Encounter for observation for suspected exposure to other biological agents ruled out
CPT/HCPCS: 36415; 80053; 85025; 87637; 93005; 96361; 96374; 96375; 99285; J0737; J1200; J2250; J2405

== ENCOUNTER → 2024-12-19 09:49 | Outpatient (BNV) | payer OTHER, SELFPAY | PROVIDERS: Emergency Provider Emergency Medicine Emergency Medical Services; Visit Provider Internal Medicine | DX: R00.1 Bradycardia, unspecified (principal) | CPT/HCPCS: 93010 ==

== ENCOUNTER 2025-04-30 13:39 | Emergency (ER) | payer OTHER, SELFPAY ==
[2025-04-30 13:45] VITALS: BP 153/80; PULSE 65; O2SAT 96
[2025-04-30 13:52] VITALS: BP 149/92; PULSE 55; RESP 16; TEMP 36.6; O2SAT 98; BMI 32.7
[2025-04-30 14:00] VITALS: BP 148/82; O2SAT 97
[2025-04-30 14:18] LABS: Hematocrit 40.0 % (42.0-52.0); Hemoglobin 13.8 g/dl (14.0-18.0); Imm Gran Abs Auto 0.05 X10*3/uL (0.00-0.03); Imm Gran Pct Auto 0.4 % (0.0-0.4); Lymphocytes Absolute Auto 0.6 X10*3/uL (1.2-4.9); MANUAL DIFF FLAG SCAN; Mean Corpuscular HGB Conc 34.5 g/dl (31.0-36.0); Mean Corpuscular Hemoglobin 29.7 pg (27.0-33.0); Mean Corpuscular Volume 86.0 fL (80.0-98.0); NRBC Abs Auto 0.000 X10*3/uL (0.0-0.012); NRBC Pct Auto 0.0 /100WBC (0.0-0.2); Platelet Count 388 X10*3/uL (160-400); Red Blood Count 4.65 X10*6/uL (4.60-5.80); SCAN SMEAR FLAG 1; White Blood Count 14.2 X10*3/uL (4.8-10.8)
--- NOTE | 2025-04-30 14:18 | ED.GENADULT ---
HPI - General Adult General Chief complaint: Nausea/Vomiting/Diarrhea Stated complaint: N/V 3 days Time Seen by Provider: 04/30/25 14:01 Source: patient and EMS Mode of arrival: EMS Limitations: no limitations History of Present Illness ED Provider: HPI narrative: 19-year-old male, currently on methadone for the past 5 months not use any drugs, yesterday had a of the child and celebrated by smoking marijuana, started developing nausea and vomiting has a history of cannabis induced hyperemesis, denies any other drug use, he did miss a dose of methadone this morning at [facility], no fevers or chills reported no hematemesis hematochezia. Related Data Home Medications ?Medication ?Instructions ?Recorded ?Confirmed methadone 10 mg/mL oral 80 mg PO DAILY 10/02/24 12/19/24 concentrate (Methadone Intensol) Previous Rx's ?Medication ?Instructions ?Recorded metoclopramide HCl 10 mg tablet 10 mg PO Q8H PRN nausea and 10/20/24 (Reglan) vomiting #20 tabs Allergies Allergy/AdvReac Type Severity Reaction Status Date / Time haloperidol (From Haldol) Allergy Unknown Verified 12/19/24 09:41 droperidol AdvReac Muscle Verified 12/19/24 09:41 cramps prochlorperazine (From AdvReac Muscle Verified 04/30/25 13:52 Compazine) cramps Review of Systems Constitutional: Constitutional: Reports as per HPI [facility] Past Medical History Medical History Prolonged QT interval Opioid use disorder Cannabinoid hyperemesis syndrome Social History Social History Alcohol intake: unknown Smoked in Last 30 Days: No Use of substances other than those prescribed or required for medical reasons: Yes Substance Use Type: Marijuana Substance Use Frequency: Recent Binge Advance Directives: No Advance Directives Information Provided: Yes Physical Exam ED Exam Exam: ?General: ??looks age appropriate ?PERRLA, EOMI, MMM, Neck: Supple, no LAD ?CV: RRR, no obvious murmurs appreciated ?Resp: ?No wheezing rales rhonchi no stridor moving air well Abd: ?Bowel sounds are present, epigastric tenderness no rebound no rigidity MSK: FROM, strength 5/5 all extremities Skin: Warm, dry, intact, ?Neuro: ?Alert and oriented x3, moving upper and lower extremities symmetrically, no obvious facial asymmetry noted, cranial nerves 2-12 intact Vital Signs: Vital Signs - 24 hr 04/30/25 13:52 04/30/25 14:00 Temperature 97.9 F Pulse Rate 55 Respiratory Rate 16 Blood Pressure 149/92 H 148/82 H Pulse Oximetry 98 97 Oxygen Delivery Method Room Air BMI result Body Mass Index 32.7 Medications Administered Discontinued Medications Generic Name Dose Route Start Last Admin Trade Name Freq PRN Reason Stop Dose Admin Diphenhydramine HCl 50 mg 04/30/25 14:19 04/30/25 14:31 Diphenhydramine Hcl 50 Mg/Ml Vial IVPUSH 04/30/25 14:20 50 mg ONCE ONE Administration Famotidine 20 mg 04/30/25 14:30 04/30/25 14:39 Famotidine/Pf 20 Mg/2 Ml Vial IVPUSH 04/30/25 14:31 20 mg ONCE ONE Administration Sodium Chloride 1,000 mls @ 999 mls/hr 04/30/25 14:30 04/30/25 14:31 Ns IV 04/30/25 15:30 999 mls/hr .Q1H1M PRABHJOT Administration Metoclopramide HCl 10 mg 04/30/25 14:19 04/30/25 14:31 Metoclopramide Hcl 10 Mg/2 Ml Vial IVPUSH 04/30/25 14:20 10 mg ONCE ONE Administration Medical Decision Making Medical Decision Making [facility] Narrative: 3:36 PM 04/30/2025 (Dr. Dayron Lin): History of cyclic vomiting, fairly benign abdominal exam did not feel further imaging such as ultrasound or CT is indicated, endorse smoking yesterday, differential diagnosis as below, symptomatic control, thereafter p.o. trial and discharge anticipated Differential Diagnosis Differential Diagnoses: The differential diagnosis associated with the presentation includes (Cholecystitis, pancreatitis, hepatitis, gastritis, cholangitis, choledocholithiasis, SBO, ACS) Admission/Observation Consideration of admission/observation: Escalation of care including admission/observation considered Lab Data [facility] Lab Attestation statement: I reviewed the patient's lab results. 04/30/25 14:09 04/30/25 14:08 Labs: Lab Results 04/30/25 04/30/25 Range/Units 14:08 14:09 WBC 14.2 H (4.8-10.8) X10*3/uL RBC 4.65 (4.60-5.80) X10*6/uL Hgb 13.8 L (14.0-18.0) g/dl Hct 40.0 L (42.0-52.0) % MCV 86.0 (80.0-98.0) fL MCH 29.7 (27.0-33.0) pg MCHC 34.5 (31.0-36.0) g/dl RDW 12.9 (11.0-16.0) % Plt Count 388 (160-400) X10*3/uL MPV 10.3 (9.4-12.4) fL Immature Gran % (Auto) 0.4 (0.0-0.4) % Neut % (Auto) 90.4 H (45-73) % Lymph % (Auto) 4.3 L (20-40) % [place] % (Auto) 4.5 (2-11) % Eos % (Auto) 0.0 (0-4) % Baso % (Auto) 0.4 (0-2) % Lymph # (Auto) 0.6 L (1.2-4.9) X10*3/uL [place] # (Auto) 0.6 (0.1-1.2) X10*3/uL Eos # (Auto) 0.0 (0.0-0.4) X10*3/uL Baso # (Auto) 0.1 (0.0-0.2) X10*3/uL Abs Immat Gran (auto) 0.05 H (0.00-0.03) X10*3/uL Absolute Neuts (auto) 12.8 H (2.0-8.3) x10*3/uL Absolute Nucleated RBC 0.000 (0.0-0.012) X10*3/uL Nucleated RBC % (auto) 0.0 (0.0-0.2) /100WBC Smear Tech's Comments VERIFIED Sodium 141 (135-145) mmol/L Potassium 3.4 (3.3-5.1) mmol/L Chloride 103 (96-108) mmol/L Carbon Dioxide 29 (22-29) mmol/L Anion Gap 12 (12-20) BUN 8 L (9-16) mg/dL Creatinine 0.73 (0.5-1.4) mg/dL Estim Creat Clear Calc 175.4 Estimated GFR > 60 Random Glucose 118 H (60-115) mg/dL Calcium 9.5 D (8.4-10.2) mg/dL Magnesium 1.9 (1.6-2.6) mg/dL Total Bilirubin 0.6 (0.0-1.0) mg/dL AST 59 H (5-37) U/L ALT 25 (0-40) U/L Alkaline Phosphatase 108 (39-117) U/L Total Protein 7.3 (6.5-8.0) g/dL Albumin 4.4 (3.5-5.0) g/dL Lipase 16 (8-78) U/L Independent Interpretation I performed an independent interpretation of an: EKG (51 beats per minute normal EKG no QTC prolongation) Critical Care Time Critical Care Time Total Critical Care Time: 32 Attestation: Time is exclusive of separately billable procedures. Time includes: direct patient care, patient reassessment, coordination of patient care, interpretation of data (laboratory data, pulse oximetry, arterial blood gases and chest xrays), review of patient's medical records, medical consultation and documentation of patient care. Procedures excluded from critical care time: central intravenous line placement and electrocardiography. Discharge Plan Discharge Clinical Impression: Cannabis hyperemesis syndrome Patient Disposition: Home, Self-Care Additional Instructions: Your workup has been reassuring, as discussed please make sure to abstain from marijuana, stay well hydrated Any other issues or concerns come back to the ER Prescriptions: No Action methadone [Methadone Intensol] 10 mg/mL Concentrate 80 mg PO DAILY metoclopramide HCl [Reglan] 10 mg tablet 10 mg PO Q8H PRN (Reason: nausea and vomiting) Qty: 20 0RF Print Language: Luxembourger
[2025-04-30 14:29] LABS: Alanine Aminotransferase 25 U/L (0-40); Albumin Level 4.4 g/dL (3.5-5.0); Alkaline Phosphatase 108 U/L (39-117); Anion Gap 12 (12-20); Aspartate Amino Transferase 59 U/L (5-37); Blood Urea Nitrogen 8 mg/dL (9-16); Calcium 9.5 mg/dL (8.4-10.2); Carbon Dioxide 29 mmol/L (22-29); Chloride 103 mmol/L (96-108); Creatinine Clr Calc Pharmacy 175.4; Estimated Glomerular Filt Rate > 60; Lipase 16 U/L (8-78); Magnesium 1.9 mg/dL (1.6-2.6); Potassium 3.4 mmol/L (3.3-5.1); Sodium 141 mmol/L (135-145); Total Protein 7.3 g/dL (6.5-8.0)
--- NOTE | 2025-04-30 14:42 | ECG_ITS ---
Test Reason : nausea Blood Pressure : */* mmHG Vent. Rate : 51 BPM Atrial Rate : 51 BPM P-R Int : 120 ms QRS Dur : 98 ms QT Int : 458 ms P-R-T Axes : 16 5 -2 degrees QTcB Int : 422 ms Sinus bradycardia Minimal voltage criteria for LVH, may be normal variant ( R in aVL ) Borderline ECG When compared with ECG of 19-Dec-2024 10:16, T wave inversion now evident in Anterior leads Referred By: Dayron Lin Electronically Signed By: Yeison Gaytan
--- NOTE | 2025-04-30 15:00 | PC.NURSE ---
Addendum entered by Silvano Velazco RPh 04/30/25 15:49: Methadone verified 105 mg [facility] Original Note: Methadone dose verified and faxed to pharmacy.
[2025-04-30] MEDS: methADONE HCl 20 MG/2 ML ORAL.CONC 80 MG PO (16:06)
--- OUTSIDE RECORDS SUMMARY | 2025-04-30 16:13 | XMS_ITS | Patient Health Record ---
Author Organization [facility] Address [address] [place] [address] Care Team Providers Care Assembler Corncob Pipes Name Role Phone [employer] - DO NOT USE, Zortman Bartow Prima ry Care Provider Unavailable Kaylynn Felix Unavailable [phone] [employer] - DO NOT USE, Mail Pick-up Unavailable Unavailable Reason For Referral No Information Plan Of Treatment No Information Insurance Providers Payer Name Payer Address Payer Phone Subscriber Number Group Number Insured Name Patient Relationship to Insured Coverage Start Date Coverage End Date [place] Medicaid Standard [address] [place] [address] [id number] Olayinka Quinones Self - patient is the insured 2 2
--- OUTSIDE RECORDS SUMMARY | 2025-04-30 16:13 | XMS_ITS | Clinical Summary ---
Author Organization [facility] Address [address] [place] [address] Care Team Providers Care Cad Technician Name Role Phone Kim Luis MD Primary Care Provider [phone] Allergies Active Allergy Reactions Criticality Noted Date Comments Haloperidol 11/22/2024 Medications budesonide-form oteroL (SYMBICORT) 80-4.5 mcg/actuation inhaler Inhale 2 puffs by mouth 2 (two) times a day. May take additional 1 to puffs as needed every 4 hours for wheeze. Rinse mouth with water after use to reduce aftertaste and incidence of candidiasis. Do not swallow. 1 each Active Medical History Medical History Date Comments Asthma Social History Tobacco Use Types Packs/Day Years Used Date Smoking Tobacco: Never Assessed Sex and Gender Information Value Date Recorded Sex Assigned at Not on file Legal Sex Male 2:27 PM EST Gender Identity Not on file [...] 11/22/2024 11:45 AM EDT Plan of Treatment Health Maintenance Due Date Last Done Comments Meningococcal B Vaccine (1 of 2 - Standard) 2019 Hepatitis B Vaccines (1 of 3 - 19+ 3-dose series) 2022 Pneumococcal Vaccine: Pediatrics (0 to 5 Years) and At-Risk Patients (6 to 49 Years) (1 of 2 - PCV) 2022 Annual Well Child Visit (3-21 years old) 06/30/2022 Cholesterol Screening (Lipid Panel) 06/30/2022 HIV Screening 06/30/2022 Hepatitis C Screening 06/30/2022 Social Influencers of Health Screening 06/30/2022 Depression Screening 05/13/2024 COVID-19 Vaccine ( - season) 2025 Influenza Vaccine (#1) 2025 , 01/29/2020, 03/04/2015, Additional history exists DTaP,Tdap,and Td Vaccines (3 - Td or Tdap) 05/02/2025 05/02/2015, 10/16/2013 RSV Immunization Adult Patients (1 - 1-dose 75+ series) 2078 MMR Vaccines Completed 09/03/2008, 07/03/2007 Varicella Vaccines [...] patient's age to complete this topic Insurance [facility] Care Teams Cad Technician Relationship Specialty Start Date End Date Kim Luis [facility] [address] [facility] [place] [id number] PCP - General Internal Medicine 07/21/24
--- OUTSIDE RECORDS SUMMARY | 2025-04-30 16:13 | XMS_ITS | Clinical Summary ---
Author Organization [facility] Address [address] [place] [id number] Phone Care Team Providers Care Lunch Cook Name Role Phone Mary Domínguez APRN Primary [...] migh t be different from the original. [facility] BP checks: [place], [place] [facility] nurse: Gogo Problem Noted Date Diagnosed [...] do not repeat more than x1 at [id number] without re-consulting psychiatry as appropriate???: -- Please [...] intractable vomiting ~2 years ago, transferred from [facility] after presenting to the ED there with [...] UOP goal 1cc/kg/hour #Agitation Psychiatry consult at [facility] recommended lamictal and prn hydroxizine. Will hold [...] potency than other strains (per Psych note: https://www.ncbi.nlm.nih.gov/pmc/articles/XCJ6783359/). Other etiologies for hyperemesis include some sort [...] Next Due DTaP, unspecified formulation 07/03/2007 ,02/01/2004,2003,2003 ICD-[id number] FORMULATION 03/28/2009 Hepatitis B, unspecified formulation 08/27/2008, [...] 2022 09/26/2004, 02/01/2004, 02/01/2004, Additional history exists INFLUENZA VACCINE (#1) 2024 , 01/29/2020, 03/04/2015, Additional history exists COVID-19 VACCINE ( - season) 2025 Adult Td,Tdap Booster 05/02/2025 05/02/2015 COMBINED DTaP,Tdap,Td [...] EDT) HDL 30(L) 35 - 100 mg/dL [facility] CHOLESTEROL 71 <200 mg/dL [facility] TRIGLYCERIDES 87 40 - 150 mg/dL [facility] LDL 24(L) 50 - 129 mg/dL [facility] CARDIAC RISK RATIO 2.4 0.0 - 5.0 [facility] NON-HDL CHOLESTEROL 41 mg/dL [facility] Comment:NCEP ATP III guideli chica suggest a non-HDL cholesterol goal 30 mg/dl higher than the patient-specific LDL goal. Blood 01/28/2019 11:0 6 AM EDT 01/28/2019 11:56 AM EDT us Leigha Garcia MD LAB BLOOD [place] [id number] from Last 3 Months or Most Recently Relevant to Health Maintenance Insurance [employer] Advance Directives For more information, please contact: [phone] (9AM - 5PM [facility], Saturday-Saturday) * Full Code (Presumed) (Latest Code Status on File) Date Activated Date Inactivated Comments 01/20/2019 2:12 AM 01/28/2019 6:40 PM Care Teams Lunch Cook Relationship Specialty Start Date End Date Mary Domínguez APRN PCP - General Unknown Provider Specialty 06/17/20 Additional Source Comments The information contained in this document represents components of the legal health record. It is not the complete legal health record.[facility]
--- OUTSIDE RECORDS SUMMARY | 2025-04-30 16:13 | XMS_ITS | Clinical Summary ---
Author Organization [facility] Address [address] [place], [place] [id number] Care Team Providers Care Head Machine Feeder Name Role Phone Unavailable Primary Care Provider Unavailabl e Medications * This document contains information received from the source organization and may not represent a complete record from that organization. ondansetron (ZOFRAN-ODT) 4 MG disintegrating tablet 4 [...] Sign Reading Time Taken Comments Blood Pressure 102/84 06/30/2023 12:00 AM EST Pulse - - Temperature - - Respiratory Rate - - Oxygen Saturation - - Inhaled Oxygen Concentration - - Weight 59 kg (130 lb) 06/30/2023 12:00 AM EST Height 172.7 cm (5' 8 ) 01/15/2019 7:25 AM EDT Body Mass Index - - Plan of Treatment Health Maintenance Due Date Last Done Comments Depression Screening 2015 Meningococcal B Vaccines (1 of 2 - Standard) 2019 Hepatitis C Screening 2021 DTaP,Tdap,and Td Vaccines (1 - Tdap) 2022 COVID-19 Vaccine ( - 2024-2 6 season) 2025 Influenza Vaccine (#1) 2025 Blood Pressure 06/30/2027 06/30/2023 Meningococcal Vaccines Aged Out No lo nger eligible based on patient's age to complete this topic Pneumococcal Vaccine Aged Out No long er eligible based on patient's age to complete this topic
--- OUTSIDE RECORDS SUMMARY | 2025-04-30 16:13 | XMS_ITS | Clinical Summary ---
Author Organization [facility] Address [address] [place] [address] Phone Care Team Providers Care Kiln Packer Name Role Phone Farida-Kim Blunt MD Primary Care Provid er Allergies No [...] untested substance as possibility). Case reviewed with [facility] ICU team. [place] he may need more intensive monitoring for possible withdrawal issues as well as possible nephrology evaluation, neither of which is available for this age group at [facility]. Placement was found at [facility] and patient will be transferred there. [...] making infectious etiology unlikely. On arrival to [facility], his chemistries were WNL. Urine toxicology screen [...] altered sensorium on 01/18 - Referral to [facility] Adolescent Substance Abuse Program (phone: [phone]) upon discharge. Cardiovascular: Mild hypertension throughout hospitalization, felt to be due 130-140/90's nicotine withdrawal (patient initially refusing patch). Brief episodes delayed capillary refill concurrent with escalating BP. Had intermittently used nicotine patch on 01/18 and 01/19. BUN and CR on 01/19 morning normal. Unclear etiology. Discussed with [facility] recommended transfer to ICU level where nephrology [...] Electrolytes at the time of admission to [facility] were within normal limits. The patient received isotonic fluid boluses at [facility] prior to transfer to [facility], and he is received IV fluid [...] appendix was visualized on CT scan at [facility]. Although gastroenteritis is a frequent [...] Health Maintenance Due Date Last Done Comments [facility] T[facility] HIV Screening 2003 [facility] HPV Vaccines (1 - Male 3-dose series) 2018 [facility] Meningococcal G roup B Conjugate Vaccine (1 of 2 - Standard) 2019 [facility] Pedi Lipid Pane l age (17-21 years) 2020 [facility] Tdap Vaccine (1 - Tdap) 2022 [facility] Influenza (Flu) Seasonal (#1) 2025 [facility] Topic Shingrix (1 of 2) 2053 [facility] AMB RSV (under 20 months) Aged Out No longer eligible based on patient's age to complete this topic [facility] HIB Vaccines Aged Out No longer eligible based on patient's age to complete this topic Insurance [employer] PPO Advance Directives For more information, please contact: [phone] * Full Code (Latest Code Status on File) Date Activated Date Inactivated Comments 01/16/2019 7:37 PM 01/20/2019 5:42 AM Care Teams Kiln Packer Relationship Specialty Start Date End Date Kim Sorto MD [address] [place] [id number] PCP - General 11/08/16
[2025-04-30] MEDS: diazePAM 10 MG/2 ML CARTRIDGE 5 MG IVPUSH (16:21)
--- NOTE | 2025-04-30 16:34 | PC.NURSE ---
Pt had been tolerating po apple juice. Pt became very upset, tearful at discharge plan, stating he was still nauseated. Advised he is being dc'd with prn nausea medication, and that he was safe to be discharged. Given MTD dose as ordered, and began to vomit shortly after I exited the room. aware.
[2025-04-30 17:38] VITALS: BP 148/82; PULSE 64; RESP 16; TEMP 36.8; O2SAT 97
== END 2025-04-30 17:39 | disposition home or self-care (01) ==
PROVIDERS: Emergency Provider Emergency Medicine
DX: R11.16 Cannabis hyperemesis syndrome (principal); R11.2 Nausea with vomiting, unspecified; R00.1 Bradycardia, unspecified
CPT/HCPCS: 36415; 80053; 83690; 83735; 85025; 93005; 96361; 96374; 96375; 99284; J1200; J1308; J2765; J3360

== ENCOUNTER → 2025-04-30 14:42 | Outpatient (BNV) | payer OTHER, SELFPAY | PROVIDERS: Emergency Provider Emergency Medicine; Visit Provider Internal Medicine Cardiovascular Disease | DX: R00.1 Bradycardia, unspecified (principal) | CPT/HCPCS: 93010 ==